=== PATIENT | female | born 1935 | race Caucasian/White ===

== ENCOUNTER 2018-05-16 18:28 | Inpatient (IN) | payer MEDICARE, OTHER ==
[~2018-05-16] VITALS: Ht 152.4 cm; Wt 74.4 kg
[2018-05-16] MEDS ORDERED: IPRATROPIUM (NEB) 0.5 MG/2.5 ML AMP INH STA ×2 (18:33→20:30)
[2018-05-16] MEDS ORDERED: MAGNESIUM SULFATE 2 GM/50 ML 50 ML IVPB STA (18:33)
[2018-05-16] MEDS ORDERED: METHYLPREDNISOLONE 125 MG INJ IV STA (18:33)
[2018-05-16] MEDS ORDERED: ALBUTEROL 0.5% (NEB) 2.5 MG/0.5 ML AMP INH STA ×2 (18:33→20:30)
--- NOTE | 2018-05-16 18:55 | ERD ---
ER Documentation Chief Complaint Chief Complaint SOB worse today than normal, didn't take asthma inhalers, low sats HPI 83-year-old female presents with granddaughter who is interpreting and giving history. Patient has a long-standing history of asthma and shortness of breath almost on a daily basis but refuses to go to primary care physician. Over the last 3 days of shortness of breath has been worse. No fevers or chills or c ough, no pleuritic pain, no chest pressure. Family was concerned about the patient's increased work of breathing and called 911. ROS All systems reviewed and are negative except as per history of present illness. Allergies Allergies: Coded Allergies: No Known Allergy (Unverified , 05/16/18) PMhx/Soc History of Surgery: Yes (umbilical hernia) Anesthesia Reaction: No Hx Respiratory Disorders: Yes (asthma) Hx Cardiac Disorders: Yes (HTN) Hx Alcohol Use: No Hx Substance Use: No Hx Tobacco Use: No Smoking Status: Never smoker FmHx Family History: No diabetes Physical Exam Vitals Vital Signs Date Temp Pulse Resp B/P (MAP) Pulse Ox O2 O2 Flow FiO2 Time Delivery Rate 05/16/18 98.6 109 18 97/75 (82) 100 Mechanical 22:40 Ventilator 05/16/18 99 18 100 70 22:15 05/16/18 100 18 84/71 (75) 100 Mechanical 21:27 Ventilator 05/16/18 101 71/54 (60) 99 Mechanical 21:00 Ventilator 05/16/18 84 Non 20:25 Rebreather 05/16/18 122 18 100 100 20:20 05/16/18 106 20 100 Nasal 5.0 19:21 Cannula 05/16/18 103 33 149/88 100 Nasal 19:15 (108) Cannula 05/16/18 Nasal 4.0 18:45 Cannula 05/16/18 Nasal 4 18:40 Cannula 05/16/18 98.5 118 38 193/115 89 18:35 (141) Physical Exam General: Well developed, well nourished, slight increased work of breathing Head: Normocephalic, atraumatic. Eyes: Pupils equally reactive, EOM intact ENT: Moist mucous membranes Neck: Supple, no lymphadenopathy Respiratory: Scant wheezing, decreased aeration, slight increased work of breathing Cardiovascular: RRR, no murmurs, rubs, or gallops Abdominal: Soft, non-tender, non-distended, no peritoneal signs : Deferred MSK: Bilateral nonpitting edema, no unilateral swelling, 5/5 strength Neurologic: Alert and oriented, moving all extremities, normal speech, no focal weakness, no cerebellar signs Skin: No rash Psych: Normal mood Result Diagram: 05/16/18191005/16/181910 Results 24 hrs Laboratory Tests Test 05/16/18 19:11 05/16/18 20:30 05/16/18 20:40 05/16/18 22:45 White Blood 7.1 10^3/ul Count Red Blood Count 5.46 10^6/ul Hemoglobin 13.8 g/dl Hematocrit 45.3 % Mean Corpuscular 83.0 fl Volume Mean Corpuscular 25.3 pg Hemoglobin Mean Corpuscular 30.5 g/dl Hemoglobin Brenda nt Red Cell 15.5 % Distribution Width Platelet Count 295 10^3/UL Mean Platelet 9.4 fl Volume Immature 0.300 % Granulocytes % Neutrophils % 65.3 % Lymphocytes % 24.3 % Monocytes % 7.5 % Eosinophils % 2.3 % Basophils % 0.3 % Nucleated Red 0.0 /100WBC Blood Cells % Immature 0.020 10^3/ul Granulocytes # Neutrophils # 4.7 10^3/ul Lymphocytes # 1.7 10^3/ul Monocytes # 0.5 10^3/ul Eosinophils # 0.2 10^3/ul Basophils # 0.0 10^3/ul Nucleated Red 0.0 10^3/ul Blood Cells # Sodium Level 144 mmol/L Potassium Level 4.4 mmol/L Chloride Level 102 mmol/L Carbon Dioxide 30 mmol/L Level Anion Gap 12 Blood Urea 14 mg/dl Nitrogen Creatinine 0.74 mg/dl Est Glomerular mL/min Filtrat Rate mL/min Glucose Level 135 mg/dl Calcium Level 9.6 mg/dl Troponin I < 0.012 ng/ml B-Type 205 PG/ML Natriuretic Peptide Blood Gas Blood arterial Specimen Source Arterial Blood 05/16/2018 10:03: Date Drawn 49 PM Arterial Blood 7.384 pH (Temp corrected) Arterial Blood 29.6 mmhg pCO2 (Temp correct) Arterial Blood 388.9 mmHG pO2 (Temp corrected) Arterial Blood 17.3 mmol/L HCO3 Arterial Blood -6.4 mmol/L Base Excess Arterial Blood 99.6 mmHG Oxygen Saturatio n Jason Test N/A Arterial Blood Right Brachial Gas Puncture Site Arterial 0.2 % Blood Carboxyhem oglobin Arterial Blood 0.2 % Methemoglobin Blood Gas A-a O2 294.5 mmHg Differential Oxyhemoglobin 99.2 % Percent Blood Gas 37.0 C Temperature Blood Gas 18.0 Respiration Rate Blood Gas Actual 18 Respiration Rate Blood Gas VENT - AC Modality FiO2 100.0 % Blood Gas Tidal 500.0 mL Volume Blood Gas Low 5.0 cmH2O PEEP Setting Blood Gas 38.0 Inspiratory Pressure Blood Gas KM Notified Whom Blood Gas 05/16/2018 10:14: Notified Time 31 PM POC Venous 6.4 mmol/L 2.7 mmol/L Lactate Current Medications Medications Dose Sig/Jeancarlos Start Time Status Last (Trade) Ordered Route PRN Stop Time Admin Dose Reason Admin Albuterol 5 mg ONCE STAT 05/16/18 DC 05/16/18 (Proventil INH 18:33 19:00 0.5% (Neb)) 05/16/18 18:34 Ipratropium 1 mg ONCE STAT 05/16/18 DC 05/16/18 [place] INH 18:33 19:00 (Atrovent 05/16/18 18:34 0.02% (Neb)) 125 mg ONCE STAT 05/16/18 DC 05/16/18 Methylprednis IV 18:33 19:19 olone Sodium 05/16/18 18:34 Succinate (Solu-Medrol) Magnesium 50 ml @ 25 ONCE STAT 05/16/18 DC 05/16/18 Sulfate mls/hr IVPB 18:33 19:20 05/16/18 20:32 Propofol 100 ml @ ud STK-MED 05/16/18 DC ONCE .ROUTE 20:18 05/16/18 20:19 Cefepime HCl 50 ml @ ONCE STAT 05/16/18 DC 05/16/18 100 mls/hr IVPB 20:30 20:52 05/16/18 20:59 Vancomycin 250 ml @ ONCE ONCE 05/16/18 DC 05/16/18 HCl 125 mls/hr IVPB 20:30 21:18 05/16/18 22:29 120 mg ONCE STAT 05/16/18 DC 05/16/18 Succinylcholi IV 20:30 20:26 ne Chloride 05/16/18 20:34 (Anectine Syringe) Etomidate 20 mg ONCE STAT 05/16/18 DC 05/16/18 (Amidate) IV 20:30 20:26 05/16/18 20:34 Propofol 100 ml @ ONCE STAT 05/16/18 05/16/18 2.19 mls/hr IV 20:30 20:52 05/18/18 18:09 Albuterol 15 mg ONCE STAT 05/16/18 DC 05/16/18 (Proventil INH 20:30 21:01 0.5% (Neb)) 05/16/18 20:34 Ipratropium 2 mg ONCE STAT 05/16/18 DC 05/16/18 [place] INH 20:30 21:01 (Atrovent 05/16/18 20:34 0.02% (Neb)) Fentanyl 25 mcg Q2H PRN 05/16/18 05/16/18 (Sublimaze) IV AGITATION 20:30 20:46 Sodium 1,000 ml @ Q1H STAT 05/16/18 DC 05/16/18 Chloride 1,000 mls/hr IV 21:00 21:19 05/16/18 21:59 Midazolam 50 ml @ 3 ONCE STAT 05/16/18 05/16/18 HCl mls/hr IV 21:00 21:47 05/17/18 13:39 Fentanyl 100 ml @ TITRATE 05/16/18 05/16/18 2.5 mls/hr ONCE IV 21:00 22:01 05/18/18 12:59 Sodium 1,190 ml BOLUS OVER 2 05/16/18 DC 05/16/18 Chloride HOURS STAT 21:14 21:27 (NS) IV* 05/16/18 21:15 Ondansetron 4 mg Q6H PRN 05/16/18 HCl (Zofran IV NAUSEA 22:30 Inj) AND/OR VOMITING Albuterol 4 puff Q2H RESP 05/16/18 (Ventolin THERAPY PRN 22:30 Hfa) INH SHORTNESS OF BREATH Ipratropium 4 puff Q2H RESP 05/16/18 [place] THERAPY PRN 22:30 (Atrovent INH Hfa) SHORTNESS OF BREATH 650 mg Q6H PRN 05/16/18 Acetaminophen PO PAIN 22:30 (Tylenol LEVEL 1-3 OR Liquid) FEVER Famotidine 20 mg Q12 IV 05/17/18 (Pepcid Iv) 09:00 Heparin 5,000 unit Q12 SC 05/17/18 Sodium 09:00 (Porcine) (Heparin (5000 Units/1ml)) Propofol 100 ml @ PER 05/16/18 2.19 mls/hr PROTOCOL IV 22:30 250 ml @ PER 05/16/18 Norepinephrin 1.875 mls/ PROTOCOL IV 22:30 e hr Procedures/MDM EKG, MONITORS, & DIAGNOSTIC IMAGING: EKG: I reviewed and interpreted a 12-lead EKG. Rhythm: Normal sinus rhythm ST Changes: No contiguous ST segment elevations T waves: No contiguous T wave inversions Impression: No evidence of acute cardiac ischemia CXR IMPRESSION: Mild cardiomegaly. Calcified aorta consistent with atherosclerotic disease. Increased interstitial changes throughout the lungs with low lung volumes. Slightly more focal right upper lobe infiltrate. repeat cxr IMPRESSION: Endotracheal tube in good position. Scattered interstitial lung changes with peribronchial cuffing which could represent an atypical or viral process versus fluid overload. There is likely a moderate sized hiatal hernia present. RPTAT:HAGL PROCEDURE: Intubation Note: Indication: Airway protection Consent: This was an emergent situation, implied consent was observed RSI Medications: Etomidate 20 mg, succinylcholine 120 mg Tube size: 7.0 Secured at: 21 at the lip Procedure: Endotracheal intubation was performed. The patient was preoxygenated with supplemental oxygen, the room was set up with emergency airway equipment including [id number], suction, and adjunct airways. Direct visualization of the cords was performed with direct laryngoscopy using video laryngoscope, insertion of the endotracheal tube through the cords was visualized. Bilateral breath sounds were auscultated, color change was observed. The tube was then secured in a postintubation chest x-ray was ordered. The patient tolerated the procedure well there were no complications. LAB INTERPRETATION: I reviewed the laboratory testing and it shows CBC with a hemoglobin of 13.8, normal white count without left shift, negative troponin and BNP, elevated lactic acid of 6.4 trending down to 2.7 MEDICAL DECISION MAKING: The patient's presentation is likely consistent with asthma exacerbation of unclear etiology. The patient appears to have chronic shortness of breath. Consider possible CHF but no obvious signs of this. The patient has chronic nonpitting edema to the lower extremities. The patient is adamant about not wanting to be in the hospital. The patient has decision-making capabilities. We will evaluate the patient for alternative etiologies such as pneumonia, CHF or acute coronary syndrome the lower concern for this process. Patient will benefit from breathing treatment and steroids. ER COURSE: * The patient was initially treated with breathing treatments, magnesium and steroids * During the patient's ER course the patient did have interval improvement however the patient then had a rapid decline. The patient's increased work of breathing got slightly worse but on repeat examination her lung sounds were improving. This is likely response to breathing treatment. Patient still had an increased work of breathing but was comfortable and conversive * Shortly after this evaluation the patient had decompensation with altered mental status, cyanosis and hypoxia. Decision was made to intubate the patient given acute respiratory failure secondary hypoxia. My thought is the patient's asthma exacerbation was persistent the patient was exhausted given duration of symptoms leading to status asthmaticus and acute hypoxemic respiratory failure. * The patient was intubated as documented above * Her blood pressure was elevated as well, consideration for flash pulmonary edema would be possible however the patient's troponin and BNP are normal. Initial chest x-ray was not consistent with pulmonary edema and repeat chest x-ray with only mild interstitial process. This seems like a less likely process. My initial concern was that aggressive fluid resuscitation could potentially lead to volume overload however now that she is intubated fluid resuscitation was initiated. The patient's lactic acid came back elevated but likely secondary to increased work of breathing rather than hypoperfusion and infectious process. * The patient does have Sirs criteria no focal source of infection is noted. This is likely consistent with a viral process and asthma exacerbation. Patient's lactic acid improved. 30 cc/kg bolus of saline was provided, blood cultures taken and empiric antibiotics provided but again very low concern for sepsis in the setting. All signs are pointing more to a respiratory process consistent with asthma. * The patient's blood pressure did dip but was improved with fluid bolus resuscitation and mean arterial pressure remains greater than 65. No indication at this time for central line. Continue to monitor and the patient seems to be fluid responsive and likely dehydrated. Lactic acid response is also reassuring and supportive of no central line at this time. * The family was updated and informed during the patient's ER course CONSULTATION: None DISPOSITION PLAN: Accepting care team and consultations: I discussed the current laboratory data, diagnostic imaging and emergency care provided. Admitting team: Dr. Umana Admitting team indication: Insurance directed It should be noted that I do not believe the patient has criteria for sepsis diagnosis in the emergency room setting. The patient was treated with fluid resuscitation and empiric antibiotics to cover for potential sepsis but the patient does not have a focal source of infection currently. Departure Diagnosis: Primary Impression: Acute hypoxemic respiratory failure Additional Impressions: Status asthmaticus Asthma severity: unspecified severity Asthma persistence: unspecified Qualified Codes: J45.902 - Unspecified asthma with status asthmaticus Dehydration Lactic acidosis Condition: Critical CECE VICTOR MD May 16, 2018 18:55
[2018-05-16] MEDS ORDERED: PROPOFOL 100 ML ONE (20:18)
[2018-05-16] MEDS ORDERED: VANCOMYCIN 1 GM (PMX) 250 ML IVPB ONE (20:30)
[2018-05-16] MEDS ORDERED: ETOMIDATE 20 MG INJ IV STA (20:30)
[2018-05-16] MEDS ORDERED: CEFEPIME 2GM/50 ML (PMX) 50 ML IVPB STA (20:30)
[2018-05-16] MEDS ORDERED: PROPOFOL 100 ML IV STA (20:30)
[2018-05-16] MEDS ORDERED: FENTAnyl 50 MCG/ML VIAL IV PRN (20:30)
[2018-05-16] MEDS ORDERED: SUCCINYLCHOLINE CHLORIDE 100 MG/5 ML SYG IV STA (20:30)
[2018-05-16] MEDS ORDERED: SOD CHLORIDE 0.9% 1,000 ML IV STA (21:00)
[2018-05-16] MEDS ORDERED: FENTAnyl (DRIP) 1000 mcg/100mL 100 ML IV ONE (21:00)
[2018-05-16] MEDS ORDERED: MIDAZOLAM (DRIP) 50 mg/50 mL 50 ML IV STA (21:00)
[2018-05-16] MEDS ORDERED: SODIUM CHLORIDE 0.9% 1L BAG IV* STA (21:14)
[2018-05-16] MEDS ORDERED: IPRATROPIUM (HFA) 12.9 GM INHALER INH PRN (22:30)
[2018-05-16] MEDS ORDERED: ONDANSETRON 4 MG INJ IV PRN (22:30)
[2018-05-16] MEDS ORDERED: NORepinephrine 8MG/250 ML (PMX 250 ML IV SCH (22:30)
[2018-05-16] MEDS ORDERED: ACETAMINOPHEN 650MG/20.3ML CUP PO PRN (22:30)
[2018-05-16] MEDS ORDERED: ALBUTEROL HFA 8 GM INHALER INH PRN (22:30)
--- NOTE | 2018-05-16 23:43 | HP ---
Date/Time of Note Date/Time of Note DATE: 05/16/18 TIME: 23:43 Assessment/Plan VTE Prophylaxis Pharmacological prophylaxis: heparin Lines/Catheters IV Catheter Type (from Nrs): Saline Lock Assessment/Plan Assessment/Plan 1. Hypoxic respiratory failure: Secondary to asthma exacerbation: s/p intubation -Continue vent support. Pulmonary to manage -Bronchodilators and steroid -Antibiotic for likely pneumonia 2. Shock, secondary to effect of paralytics/sedatives for intubation VS septic shock from pneumonia -IV fluid -Pressor support as needed -Follow-up culture results -Trend lactate 3. Lactic acidosis: Likely secondary to above -See #2 Result Diagram: 05/16/18191005/16/181910 Results 24hrs Laboratory Tests Test 05/16/18 19:11 05/16/18 20:30 05/16/18 20:40 05/16/18 22:45 White Blood Count 7.1 Red Blood Count 5.46 H Hemoglobin 13.8 Hematocrit 45.3 Mean Corpuscular 83.0 Volume Mean Corpuscular 25.3 L Hemoglobin Mean Corpuscular 30.5 L Hemoglobin Concen t Red Cell 15.5 H Distribution Width Platelet Count 295 Mean Platelet 9.4 Volume Immature 0.300 Granulocytes % Neutrophils % 65.3 Lymphocytes % 24.3 Monocytes % 7.5 Eosinophils % 2.3 Basophils % 0.3 Nucleated Red 0.0 Blood Cells % Immature 0.020 Granulocytes # Neutrophils # 4.7 Lymphocytes # 1.7 Monocytes # 0.5 Eosinophils # 0.2 Basophils # 0.0 Nucleated Red 0.0 Blood Cells # Sodium Level 144 Potassium Level 4.4 Chloride Level 102 Carbon Dioxide 30 Level Anion Gap 12 Blood Urea 14 Nitrogen Creatinine 0.74 Est Glomerular Filtrat Rate mL/min Glucose Level 135 Calcium Level 9.6 Troponin I < 0.012 B-Type 205 Natriuretic Peptide Blood Gas Blood arterial Specimen Source Arterial Blood 05/16/2018 10:03: Date Drawn 49 PM Arterial Blood pH 7.384 (Temp corrected) Arterial Blood 29.6 L pCO2 (Temp correct) Arterial Blood 388.9 H pO2 (Temp corrected) Arterial Blood 17.3 L HCO3 Arterial Blood -6.4 L Base Excess Arterial Blood 99.6 Oxygen Saturation Jason Test N/A Arterial Blood Right Brachial Gas Puncture Site Arterial 0.2 Blood Carboxyhemo globin Arterial Blood 0.2 Methemoglobin Blood Gas A-a O2 294.5 H Differential Oxyhemoglobin 99.2 H Percent Blood Gas 37.0 Temperature Blood Gas 18.0 Respiration Rate Blood Gas Actual 18 Respiration Rate Blood Gas VENT - AC Modality FiO2 100.0 Blood Gas Tidal 500.0 Volume Blood Gas Low 5.0 PEEP Setting Blood Gas 38.0 Inspiratory Pressure Blood Gas KM Notified Whom Blood Gas 05/16/2018 10:14: Notified Time 31 PM POC Venous 6.4 *H 2.7 *H Lactate HPI/ROS Admit Date/Time Admit Date/Time Hx of Present Illness This is an 83-year-old female with a history of asthma who presented to ER complaining of shortness of breath and wheezing. Symptoms been going on for about 2 days. She also reported generalized weakness. When EMS arrived, her oxygen saturation was 92%. She received breathing treatments with improvement of oxygen saturation to 98%. Wheezing and shortness of breath is also improved. Patient denied chest pain, fever/chills. When arrived to the ER, he was hypoxic with oxygen saturation of 89%, respiratory rate 38, heart rate 118, blood pressure 193/15. ABG on 100% FiO2 shows pH of almost 7.4, PCO2 30, PO2 388, bicarb 17. Due to worsening of symptom, patient was intubated in the ER. She also became progressively more short of breath after intubation, with the lowest documented BP of 71/54. Lactate significantly elevated. Chest x-ray shows the following: Mild cardiomegaly. Calcified aorta consistent with atherosclerotic disease. Increased interstitial changes throughout the lungs with low lung volumes. Slightly more focal right upper lobe infiltrate. . PMH/Family/Social Past Medical History Past Surgical History Past Surgical Hx: other (see hpi) Family History Significant Family History: no pertinent family hx Social History Alcohol Use: other Smoking Status: Unknown if ever smoked Drug Use: other Exam Constitutional: other (no acute distress) Eyes: PERRL ENMT: nl external ears & nose Neck: supple Respiratory: normal air movement Cardiovascular: nl pulses Gastrointestinal: soft Extremities: normal pulses Medications Current Medications Propofol 100 ml @ 2.19 mls/hr ONCE STAT IV Last administered on 05/16/18at 20:52; Admin Dose 2.19 MLS/HR; Start 05/16/18 at 20:30; Stop 05/18/18 at 18:09 Fentanyl (Sublimaze) 25 mcg Q2H PRN IV AGITATION Last administered on 05/16/18at 20:46; Admin Dose 25 MCG; Start 05/16/18 at 20:30 Midazolam HCl 50 ml @ 3 mls/hr ONCE STAT IV Last administered on 05/16/18at 21:47; Admin Dose 3 MLS/HR; Start 05/16/18 at 21:00; Stop 05/17/18 at 13:39 Fentanyl 100 ml @ 2.5 mls/hr TITRATE ONCE IV Last administered on 05/16/18at 22:01; Admin Dose 2.5 MLS/HR; Start 05/16/18 at 21:00; Stop 05/18/18 at 12:59 Ondansetron HCl (Zofran Inj) 4 mg Q6H PRN IV NAUSEA AND/OR VOMITING; Start 05/16/18 at 22:30 Albuterol (Ventolin Hfa) 4 puff Q2H RESP THERAPY PRN INH SHORTNESS OF BREATH; Start 05/16/18 at 22:30 Ipratropium [place] (Atrovent Hfa) 4 puff Q2H RESP THERAPY PRN INH SHORTNESS OF BREATH; Start 05/16/18 at 22:30 Acetaminophen (Tylenol Liquid) 650 mg Q6H PRN PO PAIN LEVEL 1-3 OR FEVER; Start 05/16/18 at 22:30 Famotidine (Pepcid Iv) 20 mg Q12 IV ; Start 05/17/18 at 09:00 Heparin Sodium (Porcine) (Heparin (5000 Units/1ml)) 5,000 unit Q12 SC ; Start 05/17/18 at 09:00 Propofol 100 ml @ 2.19 mls/hr PER PROTOCOL IV ; Start 05/16/18 at 22:30 Norepinephrine 250 ml @ 1.875 mls/ hr PER PROTOCOL IV ; Start 05/16/18 at 22:30 Coded Allergies: No Known Allergy (Unverified , 05/20/18) Social History Smoking Status: Never smoker Exam/Review of Systems Vital Signs Vitals Vital Signs Date Temp Pulse Resp B/P (MAP) Pulse Ox O2 O2 Flow FiO2 Time Delivery Rate 05/16/18 98.6 109 18 97/75 (82) 100 Mechanical 22:40 Ventilator 05/16/18 70 22:15 05/16/18 5.0 19:21 ELIEZER MORRIS MD May 16, 2018 23:43
[2018-05-17] VITALS (41 sets, daily range): BP systolic 84–137; BP diastolic 51–80; PULSE 75–101; RESP 12–30; Ht 152.4 cm; Wt 74.4 kg
[2018-05-17] MEDS ORDERED: NORepinephrine 8MG/250 ML (PMX 250 ML IV SCH (01:30)
[2018-05-17] MEDS ORDERED: SOD CHLORIDE 0.9% 250 ML IV ONE (02:30)
[2018-05-17] MEDS ORDERED: SOD CHLORIDE 0.9% 1,000 ML IV SCH (06:00)
[2018-05-17] MEDS: CEFTRIAXONE 1 GM/50 ML (PMX) 50 ML IVPB SCH ×2 (06:17→17:40)
[2018-05-17] MEDS ORDERED: MIDAZOLAM (DRIP) 50 mg/50 mL 50 ML IV SCH (07:00)
[2018-05-17] MEDS: AZITHROMYCIN 500MG/NS (PMX) 250 ML IVPB SCH (07:47)
[2018-05-17] MEDS ORDERED: FENTAnyl (DRIP) 1000 mcg/100mL 100 ML IV SCH (08:00)
[2018-05-17] MEDS: FAMOTIDINE 20 MG INJ IV SCH ×2 (08:28→20:37)
[2018-05-17] MEDS: HEPARIN 5,000 UNIT/1 ML VIAL SC SCH ×2 (08:29→20:38)
--- NOTE | 2018-05-17 09:59 | CONS ---
Assessment/Plan Assessment/Plan Assessment/Plan (Daily) Chest x-ray showing patchy bilateral infiltrates possibly with a background of interstitial changes. Ventilator setting; AC of 18, tidal volume 500, PEEP of 5, 40% FiO2. Patient is off Versed and fentanyl drips. Assessment and recommendations; 1. Patient admitted with shortness of breath which occurred after having dinner last night. According to the patient's son, patient was having intermittent shortness of breath the last 2 or 3 days without any fever, with rare wheezing. There is a questionable history of asthma. Patient however does use albuterol on a as needed basis at home. But has never been diagnosed with asthma per se. Etiology of respiratory failure possibly could be acute bronchospasm or laryngospasm. 2. Patchy bilateral pneumonia. Possibly interstitial lung disease. 3. Patient is currently hemodynamically stable. 4. No other comorbid conditions. Continue current supportive care. Patient currently is too sedated to undergo CPAP trial. Has been taken off sedation about 45 minutes ago. We will continue to hold sedation and reassess in about 2 hours on CPAP mode to see if the patient can be extubated. Meanwhile I would give 1 dose of Solu-Medrol 125 mg x1. I did have a detailed discussion with the patient's son at bedside answered all his questions. Prognosis is good. 40 minutes of critical care time was spent evaluating the patient. Consultation Date/Type/Reason Admit Date/Time Date of Consultation: May 17, 2018 Type of Consult Pulmonary/critical care Pulmonary consult requested for evaluation of respiratory failure. Patient is an 89-year-old lady who was brought into the emergency room with a 2- day history of shortness of breath with coughing and wheezing. Patient was in respiratory failure and had to be intubated. By the time I saw her in ICU, patient has been taken off sedation and is orally intubated and fairly responsive. History was obtained from patient's family as well as medical records. Past medical history; 1. History of asthma. Medications; reviewed. Allergies; none. Social history; no show any smoking, alcohol or drug abuse. Family history; noncontributory. Patient does have a supportive family. 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 Review of system; unable to be obtained, patient is orally intubated. General exam; elderly female, orally intubated, awake and responsive. Currently in no distress. Date/Time of Note DATE: 05/17/18 TIME: 09:50 Past Medical History Medications Current Medications Fentanyl (Sublimaze) 25 mcg Q2H PRN IV AGITATION Last administered on 05/16/18at 20:46; Admin Dose 25 MCG; Start 05/16/18 at 20:30 Ondansetron HCl (Zofran Inj) 4 mg Q6H PRN IV NAUSEA AND/OR VOMITING; Start 05/16/18 at 22:30 Albuterol (Ventolin Hfa) 4 puff Q2H RESP THERAPY PRN INH SHORTNESS OF BREATH; Start 05/16/18 at 22:30 Ipratropium [place] (Atrovent Hfa) 4 puff Q2H RESP THERAPY PRN INH SHORTNESS OF BREATH; Start 05/16/18 at 22:30 Acetaminophen (Tylenol Liquid) 650 mg Q6H PRN PO PAIN LEVEL 1-3 OR FEVER; Start 05/16/18 at 22:30 Famotidine (Pepcid Iv) 20 mg Q12 IV Last administered on 05/17/18at 08:28; Admin Dose 20 MG; Start 05/17/18 at 09:00 Heparin Sodium (Porcine) (Heparin (5000 Units/1ml)) 5,000 unit Q12 SC Last administered on 05/17/18 08:29; Admin Dose 5,000 UNIT; Start 05/17/18 at 09:00 Propofol 100 ml @ 2.19 mls/hr PER PROTOCOL IV ; Start 05/16/18 at 22:30 Norepinephrine 250 ml @ 1.875 mls/ hr PER PROTOCOL IV ; Start 05/17/18 at 01:30 Azithromycin 250 ml @ 250 mls/hr Q24H IVPB Last administered on 05/17/18at 07:47; Admin Dose 250 MLS/HR; Start 05/17/18 at 07:00 Ceftriaxone Sodium 50 ml @ 100 mls/hr Q12H IVPB Last administered on 05/17/18 06:17; Admin Dose 100 MLS/HR; Start 05/17/18 at 06:00 Sodium Chloride 1,000 ml @ 100 mls/hr Q10H IV Last administered on 05/17/18 06:17; Admin Dose 100 MLS/HR; Start 05/17/18 at 06:00 Midazolam HCl 50 ml @ 1 mls/hr TITRATE IV Last administered on 3/13/19at 07:22; Admin Dose 5 MLS/HR; Start 05/17/18 at 07:00 Fentanyl 100 ml @ 2.5 mls/hr TITRATE IV ; Start 05/17/18 at 07:00 Allergies: Coded Allergies: No Known Allergy (Unverified , 05/16/18) Social History Smoking Status: Unknown if ever smoked Exam/Review of Systems Exam Vitals Vital Signs Date Temp Pulse Resp B/P (MAP) Pulse Ox O2 O2 Flow FiO2 Time Delivery Rate 05/17/18 83 18 100 40 08:43 05/17/18 98/64 (75) 05:30 05/17/18 Mechanical 05:00 Ventilator 05/17/18 97.8 04:30 05/16/18 5.0 19:21 Intake and Output 05/16/18 05/16/18 05/17/18 1515:00 23:00 07:00 IntakeIntake Total 162.5 ml BalanceBalance 162.5 ml Exam HEENT exam; supple neck, no JVD. No lymphadenopathy. Midline trachea. No thyromegaly. Orally intubated. Patient is edentulous. Chest exam; diminished breath sounds bilaterally. No added sounds. S1-S2 audible, no murmurs. Regular rhythm. Abdomen exam; soft, nontender. No organomegaly. Nondistended. Bowel sounds audible. Extremity exam; no peripheral edema clubbing. SOC[employer] WORK PROFESS[employer] exam; no focal deficit. Results Result Diagram: 05/17/18 0753 05/17/18 0753 Results 24hrs Laboratory Tests Test 05/16/18 19:11 05/16/18 20:30 05/16/18 20:40 05/16/18 22:45 White Blood Count 7.1 Red Blood Count 5.46 H Hemoglobin 13.8 Hematocrit 45.3 Mean Corpuscular 83.0 Volume Mean Corpuscular 25.3 L Hemoglobin Mean Corpuscular 30.5 L Hemoglobin Concen t Red Cell 15.5 H Distribution Width Platelet Count 295 Mean Platelet 9.4 Volume Immature 0.300 Granulocytes % Neutrophils % 65.3 Lymphocytes % 24.3 Monocytes % 7.5 Eosinophils % 2.3 Basophils % 0.3 Nucleated Red 0.0 Blood Cells % Immature 0.020 Granulocytes # Neutrophils # 4.7 Lymphocytes # 1.7 Monocytes # 0.5 Eosinophils # 0.2 Basophils # 0.0 Nucleated Red 0.0 Blood Cells # Sodium Level 144 Potassium Level 4.4 Chloride Level 102 Carbon Dioxide 30 Level Anion Gap 12 Blood Urea 14 Nitrogen Creatinine 0.74 Est Glomerular Filtrat Rate mL/min Glucose Level 135 Calcium Level 9.6 Troponin I < 0.012 B-Type 205 Natriuretic Peptide Blood Gas Blood arterial Specimen Source Arterial Blood 05/16/2018 10:03: Date Drawn 49 PM Arterial Blood pH 7.384 (Temp corrected) Arterial Blood 29.6 L pCO2 (Temp correct) Arterial Blood 388.9 H pO2 (Temp corrected) Arterial Blood 17.3 L HCO3 Arterial Blood -6.4 L Base Excess Arterial Blood 99.6 Oxygen Saturation Jason Test N/A Arterial Blood Right Brachial Gas Puncture Site Arterial 0.2 Blood Carboxyhemo globin Arterial Blood 0.2 Methemoglobin Blood Gas A-a O2 294.5 H Differential Oxyhemoglobin 99.2 H Percent Blood Gas 37.0 Temperature Blood Gas 18.0 Respiration Rate Blood Gas Actual 18 Respiration Rate Blood Gas VENT - AC Modality FiO2 100.0 Blood Gas Tidal 500.0 Volume Blood Gas Low 5.0 PEEP Setting Blood Gas 38.0 Inspiratory Pressure Blood Gas Notified Whom Blood Gas 05/16/2018 10:14: Notified Time 31 PM POC Venous 6.4 *H 2.7 *H Lactate Test 05/17/18 01:40 05/17/18 07:53 Lactic Acid Level 8.5 *H 7.9 *H White Blood Count 9.9 # Red Blood Count 4.96 Hemoglobin 12.5 Hematocrit 40.9 Mean Corpuscular 82.5 Volume Mean Corpuscular 25.2 L Hemoglobin Mean Corpuscular 30.6 L Hemoglobin Concen t Red Cell 15.8 H Distribution Width Platelet Count 243 Mean Platelet 10.5 H Volume Immature 0.600 H Granulocytes % Neutrophils % 87.9 H Lymphocytes % 8.0 L Monocytes % 3.4 Eosinophils % 0.0 Basophils % 0.1 Nucleated Red 0.0 Blood Cells % Immature 0.060 H Granulocytes # Neutrophils # 8.7 H Lymphocytes # 0.8 Monocytes # 0.3 Eosinophils # 0.0 Basophils # 0.0 Nucleated Red 0.0 Blood Cells # Sodium Level 144 Potassium Level 4.6 Chloride Level 110 Carbon Dioxide 18 #L Level Anion Gap 16 H Blood Urea 18 Nitrogen Creatinine 0.72 Est Glomerular Filtrat Rate mL/min Glucose Level 189 Calcium Level 8.6 Total Bilirubin 0.3 Direct Bilirubin 0.00 Indirect 0.3 Bilirubin Aspartate Amino 31 Transf (AST/SGOT) Alanine 11 L Aminotransferase (ALT/SGPT) Alkaline 80 Phosphatase Total Protein 6.5 Albumin 3.4 Globulin 3.10 Albumin/Globulin 1.09 Ratio Medications Medication Current Medications Fentanyl (Sublimaze) 25 mcg Q2H PRN IV AGITATION Last administered on 05/16/18at 20:46; Admin Dose 25 MCG; Start 05/16/18 at 20:30 Ondansetron HCl (Zofran Inj) 4 mg Q6H PRN IV NAUSEA AND/OR VOMITING; Start 05/16/18 at 22:30 Albuterol (Ventolin Hfa) 4 puff Q2H RESP THERAPY PRN INH SHORTNESS OF BREATH; Start 05/16/18 at 22:30 Ipratropium [place] (Atrovent Hfa) 4 puff Q2H RESP THERAPY PRN INH SHORTNESS OF BREATH; Start 05/16/18 at 22:30 Acetaminophen (Tylenol Liquid) 650 mg Q6H PRN PO PAIN LEVEL 1-3 OR FEVER; Start 05/16/18 at 22:30 Famotidine (Pepcid Iv) 20 mg Q12 IV Last administered on 05/17/18at 08:28; Admin Dose 20 MG; Start 05/17/18 at 09:00 Heparin Sodium (Porcine) (Heparin (5000 Units/1ml)) 5,000 unit Q12 SC Last administered on 05/17/18at 08:29; Admin Dose 5,000 UNIT; Start 05/17/18 at 09:00 Propofol 100 ml @ 2.19 mls/hr PER PROTOCOL IV ; Start 05/16/18 at 22:30 Norepinephrine 250 ml @ 1.875 mls/ hr PER PROTOCOL IV ; Start 05/17/18 at 01:30 Azithromycin 250 ml @ 250 mls/hr Q24H IVPB Last administered on 05/17/18at 07:47; Admin Dose 250 MLS/HR; Start 05/17/18 at 07:00 Ceftriaxone Sodium 50 ml @ 100 mls/hr Q12H IVPB Last administered on 05/17/18at 06:17; Admin Dose 100 MLS/HR; Start 05/17/18 at 06:00 Sodium Chloride 1,000 ml @ 100 mls/hr Q10H IV Last administered on 05/17/18at 06:17; Admin Dose 100 MLS/HR; Start 05/17/18 at 06:00 Midazolam HCl 50 ml @ 1 mls/hr TITRATE IV Last administered on 05/17/18at 07:22; Admin Dose 5 MLS/HR; Start 05/17/18 at 07:00 Fentanyl 100 ml @ 2.5 mls/hr TITRATE IV ; Start 05/17/18 at 07:00 MONICA STORY 13, 2019 09:59
[2018-05-17] MEDS ORDERED: METHYLPREDNISOLONE 125 MG INJ IV ONE (10:00)
[2018-05-17] MEDS ORDERED: ALBUTEROL/IPRATROPIUM (NEB) 3 ML AMP HHN SCH (10:00)
--- NOTE | 2018-05-17 10:01 | CONS ---
Assessment/Plan Assessment/Plan Assessment/Plan (Daily) Respiratory failure Required intubation Shock elevated lactic acid level Elevated lactic acidosis Mild to moderate obesity Conditioning Complete database Long discussion with patient's son and [id number]. [id number] does primarily the speaking and ask questions on behalf of the patient. 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 Given details about her current medical history the fact she is doing well at this time but that she is intubated and she may require a prolonged stay on the ventilator but at this time it does not seem to be the case. Patient is awake alert being followed by pulmonary medicine will keep family members well informed. I did not approach CODE STATUS Consultation Date/Type/Reason Admit Date/Time Date/Time of Note DATE: 05/17/18 TIME: 09:59 Hx of Present Illness History is taken from patient medical records and her son at the bedside. She is an 83-year-old female who was brought into the emergency room in respiratory distress hypoxic respiratory failure did not respond to echo dilators required intubation and has been transferred to the intensive care unit the patient has a past medical history of asthma and was having complaints of increasing shortness of breath prior to presentation. EMS were called patient's sats were in the 90s percentile 92% breathing improved after supplemental oxygen pressure was 193/15 in the emergency room elevated lactic acid level. Chest x-ray and presentations primarily show scattered interstitial lung changes and peribronchial cuffing with which could represent atypical or viral process medical problems include cardiomyopathy. According to family members she has essentially no severe past medical history of major medical comorbid problems. She is ambulatory she can do all her ADLs she requires assistance with a walker only otherwise cognitively she is intact. Unobtainable patient is intubated Past Medical History Medications Current Medications Fentanyl (Sublimaze) 25 mcg Q2H PRN IV AGITATION Last administered on 05/16/18at 20:46; Admin Dose 25 MCG; Start 05/16/18 at 20:30 Ondansetron HCl (Zofran Inj) 4 mg Q6H PRN IV NAUSEA AND/OR VOMITING; Start 05/16/18 at 22:30 Albuterol (Ventolin Hfa) 4 puff Q2H RESP THERAPY PRN INH SHORTNESS OF BREATH; Start 05/16/18 at 22:30 Ipratropium [place] (Atrovent Hfa) 4 puff Q2H RESP THERAPY PRN INH SHORTNESS OF BREATH; Start 05/16/18 at 22:30 Acetaminophen (Tylenol Liquid) 650 mg Q6H PRN PO PAIN LEVEL 1-3 OR FEVER; Start 05/16/18 at 22:30 Famotidine (Pepcid Iv) 20 mg Q12 IV Last administered on 05/17/18at 08:28; Admin Dose 20 MG; Start 05/17/18 at 09:00 Heparin Sodium (Porcine) (Heparin (5000 Units/1ml)) 5,000 unit Q12 SC Last administered on 05/17/18at 08:29; Admin Dose 5,000 UNIT; Start 05/17/18 at 09:00 Propofol 100 ml @ 2.19 mls/hr PER PROTOCOL IV ; Start 05/16/18 at 22:30 Norepinephrine 250 ml @ 1.875 mls/ hr PER PROTOCOL IV ; Start 05/17/18 at 01:30 Azithromycin 250 ml @ 250 mls/hr Q24H IVPB Last administered on 05/17/18at 07:47; Admin Dose 250 MLS/HR; Start 05/17/18 at 07:00 Ceftriaxone Sodium 50 ml @ 100 mls/hr Q12H IVPB Last administered on 05/17/18at 06:17; Admin Dose 100 MLS/HR; Start 05/17/18 at 06:00 Sodium Chloride 1,000 ml @ 100 mls/hr Q10H IV Last administered on 05/17/18at 06:17; Admin Dose 100 MLS/HR; Start 05/17/18 at 06:00 Midazolam HCl 50 ml @ 1 mls/hr TITRATE IV Last administered on 05/17/18at 07:22; Admin Dose 5 MLS/HR; Start 05/17/18 at 07:00 Fentanyl 100 ml @ 2.5 mls/hr TITRATE IV ; Start 05/17/18 at 07:00 Allergies: Coded Allergies: No Known Allergy (Unverified , 05/16/18) Social History Alcohol Use: none Smoking Status: Never smoker Drug Use: none Exam/Review of Systems Exam Vitals Vital Signs Date Temp Pulse Resp B/P (MAP) Pulse Ox O2 O2 Flow FiO2 Time Delivery Rate 05/17/18 83 18 100 40 08:43 05/17/18 98/64 (75) 05:30 05/17/18 Mechanical 05:00 Ventilator 05/17/18 97.8 04:30 05/16/18 5.0 19:21 Intake and Output 05/16/18 05/16/18 05/17/18 1515:00 23:00 07:00 IntakeIntake Total 162.5 ml BalanceBalance 162.5 ml Constitutional: alert, oriented, well developed Psych: anxiety Head: normocephalic, atraumatic Eyes: nl conjunctiva, EOMI, nl lids, nl sclera, PERRL ENMT: No nl external ears & nose, No nl lips & teeth, No nl nasal mucosa & septum, No mucosa pink and moist, No intubated, No tympanic membranes, No other Neck: supple, non-tender Respiratory: clear to auscultation, normal air movement, other (Without rales rhonchi wheezing rubs, intubated) Cardiovascular: regular rate and rhythm, nl pulses; No bruits, No diastolic murmur, No edema, No gallop, No irregular rhythm, No jugular venous distention (JVD), No murmurs/extra sounds, No rub, No systolic murmur, No S3, No S4, No other Gastrointestinal: soft, nl liver, spleen, non-tender; No ascites, No bowel sounds, No distended, No firm, No hepatomegaly, No mass, No rebound or guarding, No splenomegaly, No surgical scars, No tender, No other Extremities: normal pulses; No calf tenderness, No cyanosis, No clubbing, No edema, No pitting pedal edema, No palpable cord, No tenderness, No other Results Result Diagram: 05/17/18 0753 05/17/18 0753 Results 24hrs Laboratory Tests Test 05/16/18 19:11 05/16/18 20:30 05/16/18 20:40 05/16/18 22:45 White Blood Count 7.1 Red Blood Count 5.46 H Hemoglobin 13.8 Hematocrit 45.3 Mean Corpuscular 83.0 Volume Mean Corpuscular 25.3 L Hemoglobin Mean Corpuscular 30.5 L Hemoglobin Concen t Red Cell 15.5 H Distribution Width Platelet Count 295 Mean Platelet 9.4 Volume Immature 0.300 Granulocytes % Neutrophils % 65.3 Lymphocytes % 24.3 Monocytes % 7.5 Eosinophils % 2.3 Basophils % 0.3 Nucleated Red 0.0 Blood Cells % Immature 0.020 Granulocytes # Neutrophils # 4.7 Lymphocytes # 1.7 Monocytes # 0.5 Eosinophils # 0.2 Basophils # 0.0 Nucleated Red 0.0 Blood Cells # Sodium Level 144 Potassium Level 4.4 Chloride Level 102 Carbon Dioxide 30 Level Anion Gap 12 Blood Urea 14 Nitrogen Creatinine 0.74 Est Glomerular Filtrat Rate mL/min Glucose Level 135 Calcium Level 9.6 Troponin I < 0.012 B-Type 205 Natriuretic Peptide Blood Gas Blood arterial Specimen Source Arterial Blood 05/16/2018 10:03: Date Drawn 49 PM Arterial Blood pH 7.384 (Temp corrected) Arterial Blood 29.6 L pCO2 (Temp correct) Arterial Blood 388.9 H pO2 (Temp corrected) Arterial Blood 17.3 L HCO3 Arterial Blood -6.4 L Base Excess Arterial Blood 99.6 Oxygen Saturation Jason Test N/A Arterial Blood Right Brachial Gas Puncture Site Arterial 0.2 Blood Carboxyhemo globin Arterial Blood 0.2 Methemoglobin Blood Gas A-a O2 294.5 H Differential Oxyhemoglobin 99.2 H Percent Blood Gas 37.0 Temperature Blood Gas 18.0 Respiration Rate Blood Gas Actual 18 Respiration Rate Blood Gas VENT - AC Modality FiO2 100.0 Blood Gas Tidal 500.0 Volume Blood Gas Low 5.0 PEEP Setting Blood Gas 38.0 Inspiratory Pressure Blood Gas KM Notified Whom Blood Gas 05/16/2018 10:14: Notified Time 31 PM POC Venous 6.4 *H 2.7 *H Lactate Test 05/17/18 01:40 05/17/18 07:53 Lactic Acid Level 8.5 *H 7.9 *H White Blood Count 9.9 # Red Blood Count 4.96 Hemoglobin 12.5 Hematocrit 40.9 Mean Corpuscular 82.5 Volume Mean Corpuscular 25.2 L Hemoglobin Mean Corpuscular 30.6 L Hemoglobin Concen t Red Cell 15.8 H Distribution Width Platelet Count 243 Mean Platelet 10.5 H Volume Immature 0.600 H Granulocytes % Neutrophils % 87.9 H Lymphocytes % 8.0 L Monocytes % 3.4 Eosinophils % 0.0 Basophils % 0.1 Nucleated Red 0.0 Blood Cells % Immature 0.060 H Granulocytes # Neutrophils # 8.7 H Lymphocytes # 0.8 Monocytes # 0.3 Eosinophils # 0.0 Basophils # 0.0 Nucleated Red 0.0 Blood Cells # Sodium Level 144 Potassium Level 4.6 Chloride Level 110 Carbon Dioxide 18 #L Level Anion Gap 16 H Blood Urea 18 Nitrogen Creatinine 0.72 Est Glomerular Filtrat Rate mL/min Glucose Level 189 Calcium Level 8.6 Total Bilirubin 0.3 Direct Bilirubin 0.00 Indirect 0.3 Bilirubin Aspartate Amino 31 Transf (AST/SGOT) Alanine 11 L Aminotransferase (ALT/SGPT) Alkaline 80 Phosphatase Total Protein 6.5 Albumin 3.4 Globulin 3.10 Albumin/Globulin 1.09 Ratio Medications Medication Current Medications Fentanyl (Sublimaze) 25 mcg Q2H PRN IV AGITATION Last administered on 05/16/18 20:46; Admin Dose 25 MCG; Start 05/16/18 at 20:30 Ondansetron HCl (Zofran Inj) 4 mg Q6H PRN IV NAUSEA AND/OR VOMITING; Start 05/16/18 at 22:30 Albuterol (Ventolin Hfa) 4 puff Q2H RESP THERAPY PRN INH SHORTNESS OF BREATH; Start 05/16/18 at 22:30 Ipratropium [place] (Atrovent Hfa) 4 puff Q2H RESP THERAPY PRN INH SHORTNESS OF BREATH; Start 05/16/18 at 22:30 Acetaminophen (Tylenol Liquid) 650 mg Q6H PRN PO PAIN LEVEL 1-3 OR FEVER; Start 05/16/18 at 22:30 Famotidine (Pepcid Iv) 20 mg Q12 IV Last administered on 05/17/18 08:28; Admin Dose 20 MG; Start 05/17/18 at 09:00 Heparin Sodium (Porcine) (Heparin (5000 Units/1ml)) 5,000 unit Q12 SC Last administered on 05/17/18 08:29; Admin Dose 5,000 UNIT; Start 05/17/18 at 09:00 Propofol 100 ml @ 2.19 mls/hr PER PROTOCOL IV ; Start 05/16/18 at 22:30 Norepinephrine 250 ml @ 1.875 mls/ hr PER PROTOCOL IV ; Start 05/17/18 at 01:30 Azithromycin 250 ml @ 250 mls/hr Q24H IVPB Last administered on 05/17/18 07:47; Admin Dose 250 MLS/HR; Start 05/17/18 at 07:00 Ceftriaxone Sodium 50 ml @ 100 mls/hr Q12H IVPB Last administered on 3/13/19at 06:17; Admin Dose 100 MLS/HR; Start 05/17/18 at 06:00 Sodium Chloride 1,000 ml @ 100 mls/hr Q10H IV Last administered on 05/17/18at 06:17; Admin Dose 100 MLS/HR; Start 05/17/18 at 06:00 Midazolam HCl 50 ml @ 1 mls/hr TITRATE IV Last administered on 05/17/18at 07:22; Admin Dose 5 MLS/HR; Start 05/17/18 at 07:00 Fentanyl 100 ml @ 2.5 mls/hr TITRATE IV ; Start 05/17/18 at 07:00 MATTHEW BUSTILLO May 17, 2018 10:01
[2018-05-17] MEDS: FENTAnyl (DRIP) 1000 mcg/100mL 100 ML IV SCH ×2 (11:41→17:46)
[2018-05-17] MEDS: PROPOFOL 100 ML IV SCH ×2 (11:41→20:37)
[2018-05-17] MEDS ORDERED: FUROSEMIDE 20 MG INJ IV ONE (12:30)
[2018-05-17] MEDS: IPRATROPIUM (HFA) 12.9 GM INHALER INH SCH ×2 (13:24→19:32)
[2018-05-17] MEDS: ALBUTEROL HFA 8 GM INHALER INH SCH ×2 (13:24→19:32)
--- NOTE | 2018-05-17 15:24 | PN ---
Date/Time of Note Date/Time of Note DATE: 05/17/18 TIME: 15:22 Assessment/Plan VTE Prophylaxis Risk score (from [facility])>0 risk: 7 SCD applied (from [facility]): Yes Pharmacological prophylaxis: heparin Lines/Catheters IV Catheter Type (from [facility]): Peripheral IV Assessment/Plan Hospital Course 1. Hypoxic respiratory failure: Secondary to pneumonia and COPD exacerbation: s/p intubation -Continue vent support. Pulmonary to manage -Bronchodilators and steroid -Antibiotic for likely pneumonia 2. Shock, secondary to effect of paralytics/sedatives for intubation VS septic shock from pneumonia -IV fluid -Pressor support as needed -Follow-up culture results -Trend lactate Prophylaxis: Heparin, Pepcid Result Diagram: 05/17/18 0753 05/17/18 0753 Results 24hrs Laboratory Tests Test 05/16/18 19:11 05/16/18 20:30 05/16/18 20:40 05/16/18 22:45 White Blood Count 7.1 Red Blood Count 5.46 H Hemoglobin 13.8 Hematocrit 45.3 Mean Corpuscular 83.0 Volume Mean Corpuscular 25.3 L Hemoglobin Mean Corpuscular 30.5 L Hemoglobin Concen t Red Cell 15.5 H Distribution Width Platelet Count 295 Mean Platelet 9.4 Volume Immature 0.300 Granulocytes % Neutrophils % 65.3 Lymphocytes % 24.3 Monocytes % 7.5 Eosinophils % 2.3 Basophils % 0.3 Nucleated Red 0.0 Blood Cells % Immature 0.020 Granulocytes # Neutrophils # 4.7 Lymphocytes # 1.7 Monocytes # 0.5 Eosinophils # 0.2 Basophils # 0.0 Nucleated Red 0.0 Blood Cells # Sodium Level 144 Potassium Level 4.4 Chloride Level 102 Carbon Dioxide 30 Level Anion Gap 12 Blood Urea 14 Nitrogen Creatinine 0.74 Est Glomerular Filtrat Rate mL/min Glucose Level 135 Calcium Level 9.6 Troponin I < 0.012 B-Type 205 Natriuretic Peptide Blood Gas Blood arterial Specimen Source Arterial Blood 05/16/2018 10:03: Date Drawn 49 PM Arterial Blood pH 7.384 (Temp corrected) Arterial Blood 29.6 L pCO2 (Temp correct) Arterial Blood 388.9 H pO2 (Temp corrected) Arterial Blood 17.3 L HCO3 Arterial Blood -6.4 L Base Excess Arterial Blood 99.6 Oxygen Saturation Jason Test N/A Arterial Blood Right Brachial Gas Puncture Site Arterial 0.2 Blood Carboxyhemo globin Arterial Blood 0.2 Methemoglobin Blood Gas A-a O2 294.5 H Differential Oxyhemoglobin 99.2 H Percent Blood Gas 37.0 Temperature Blood Gas 18.0 Respiration Rate Blood Gas Actual 18 Respiration Rate Blood Gas VENT - AC Modality FiO2 100.0 Blood Gas Tidal 500.0 Volume Blood Gas Low 5.0 PEEP Setting Blood Gas 38.0 Inspiratory Pressure Blood Gas KM Notified Whom Blood Gas 05/16/2018 10:14: Notified Time 31 PM POC Venous 6.4 *H 2.7 *H Lactate Test 05/17/18 01:40 05/17/18 07:53 Lactic Acid Level 8.5 *H 7.9 *H White Blood Count 9.9 # Red Blood Count 4.96 Hemoglobin 12.5 Hematocrit 40.9 Mean Corpuscular 82.5 Volume Mean Corpuscular 25.2 L Hemoglobin Mean Corpuscular 30.6 L Hemoglobin Concen t Red Cell 15.8 H Distribution Width Platelet Count 243 Mean Platelet 10.5 H Volume Immature 0.600 H Granulocytes % Neutrophils % 87.9 H Lymphocytes % 8.0 L Monocytes % 3.4 Eosinophils % 0.0 Basophils % 0.1 Nucleated Red 0.0 Blood Cells % Immature 0.060 H Granulocytes # Neutrophils # 8.7 H Lymphocytes # 0.8 Monocytes # 0.3 Eosinophils # 0.0 Basophils # 0.0 Nucleated Red 0.0 Blood Cells # Sodium Level 144 Potassium Level 4.6 Chloride Level 110 Carbon Dioxide 18 #L Level Anion Gap 16 H Blood Urea 18 Nitrogen Creatinine 0.72 Est Glomerular Filtrat Rate mL/min Glucose Level 189 Calcium Level 8.6 Total Bilirubin 0.3 Direct Bilirubin 0.00 Indirect 0.3 Bilirubin Aspartate Amino 31 Transf (AST/SGOT) Alanine 11 L Aminotransferase (ALT/SGPT) Alkaline 80 Phosphatase Total Protein 6.5 Albumin 3.4 Globulin 3.10 Albumin/Globulin 1.09 Ratio Subjective 24 Hr Interval Summary Subjective hx not possible: pt non-verbal Exam/Review of Systems Exam Vitals Vital Signs Date Temp Pulse Resp B/P (MAP) Pulse Ox O2 O2 Flow FiO2 Time Delivery Rate 05/17/18 81 18 99 30 14:52 05/17/18 119/66 Mechanical 11:00 (83) Ventilator 05/17/18 98.0 08:00 05/16/18 5.0 19:21 Intake and Output 3/12/19 3/12/19 3/13/19 1515:00 23:00 07:00 IntakeIntake Total 162.5 ml BalanceBalance 162.5 ml ENMT: intubated Respiratory: clear to auscultation Cardiovascular: regular rate and rhythm Gastrointestinal: soft; No distended Musculoskeletal: nl extremities to inspection Results Results 24hrs Laboratory Tests Test 05/16/18 19:11 05/16/18 20:30 05/16/18 20:40 05/16/18 22:45 White Blood Count 7.1 Red Blood Count 5.46 H Hemoglobin 13.8 Hematocrit 45.3 Mean Corpuscular 83.0 Volume Mean Corpuscular 25.3 L Hemoglobin Mean Corpuscular 30.5 L Hemoglobin Concen t Red Cell 15.5 H Distribution Width Platelet Count 295 Mean Platelet 9.4 Volume Immature 0.300 Granulocytes % Neutrophils % 65.3 Lymphocytes % 24.3 Monocytes % 7.5 Eosinophils % 2.3 Basophils % 0.3 Nucleated Red 0.0 Blood Cells % Immature 0.020 Granulocytes # Neutrophils # 4.7 Lymphocytes # 1.7 Monocytes # 0.5 Eosinophils # 0.2 Basophils # 0.0 Nucleated Red 0.0 Blood Cells # Sodium Level 144 Potassium Level 4.4 Chloride Level 102 Carbon Dioxide 30 Level Anion Gap 12 Blood Urea 14 Nitrogen Creatinine 0.74 Est Glomerular Filtrat Rate mL/min Glucose Level 135 Calcium Level 9.6 Troponin I < 0.012 B-Type 205 Natriuretic Peptide Blood Gas Blood arterial Specimen Source Arterial Blood 05/16/2018 10:03: Date Drawn 49 PM Arterial Blood pH 7.384 (Temp corrected) Arterial Blood 29.6 L pCO2 (Temp correct) Arterial Blood 388.9 H pO2 (Temp corrected) Arterial Blood 17.3 L HCO3 Arterial Blood -6.4 L Base Excess Arterial Blood 99.6 Oxygen Saturation Jason Test N/A Arterial Blood Right Brachial Gas Puncture Site Arterial 0.2 Blood Carboxyhemo globin Arterial Blood 0.2 Methemoglobin Blood Gas A-a O2 294.5 H Differential Oxyhemoglobin 99.2 H Percent Blood Gas 37.0 Temperature Blood Gas 18.0 Respiration Rate Blood Gas Actual 18 Respiration Rate Blood Gas VENT - AC Modality FiO2 100.0 Blood Gas Tidal 500.0 Volume Blood Gas Low 5.0 PEEP Setting Blood Gas 38.0 Inspiratory Pressure Blood Gas Notified Whom Blood Gas 05/16/2018 10:14: Notified Time 31 PM POC Venous 6.4 *H 2.7 *H Lactate Test 05/17/18 01:40 05/17/18 07:53 Lactic Acid Level 8.5 *H 7.9 *H White Blood Count 9.9 # Red Blood Count 4.96 Hemoglobin 12.5 Hematocrit 40.9 Mean Corpuscular 82.5 Volume Mean Corpuscular 25.2 L Hemoglobin Mean Corpuscular 30.6 L Hemoglobin Concen t Red Cell 15.8 H Distribution Width Platelet Count 243 Mean Platelet 10.5 H Volume Immature 0.600 H Granulocytes % Neutrophils % 87.9 H Lymphocytes % 8.0 L Monocytes % 3.4 Eosinophils % 0.0 Basophils % 0.1 Nucleated Red 0.0 Blood Cells % Immature 0.060 H Granulocytes # Neutrophils # 8.7 H Lymphocytes # 0.8 Monocytes # 0.3 Eosinophils # 0.0 Basophils # 0.0 Nucleated Red 0.0 Blood Cells # Sodium Level 144 Potassium Level 4.6 Chloride Level 110 Carbon Dioxide 18 #L Level Anion Gap 16 H Blood Urea 18 Nitrogen Creatinine 0.72 Est Glomerular Filtrat Rate mL/min Glucose Level 189 Calcium Level 8.6 Total Bilirubin 0.3 Direct Bilirubin 0.00 Indirect 0.3 Bilirubin Aspartate Amino 31 Transf (AST/SGOT) Alanine 11 L Aminotransferase (ALT/SGPT) Alkaline 80 Phosphatase Total Protein 6.5 Albumin 3.4 Globulin 3.10 Albumin/Globulin 1.09 Ratio Medications Medication Current Medications Fentanyl (Sublimaze) 25 mcg Q2H PRN IV AGITATION Last administered on 05/16/18at 20:46; Admin Dose 25 MCG; Start 05/16/18 at 20:30 Ondansetron HCl (Zofran Inj) 4 mg Q6H PRN IV NAUSEA AND/OR VOMITING Last administered on 05/17/18at 11:41; Admin Dose 4 MG; Start 05/16/18 at 22:30 Albuterol (Ventolin Hfa) 4 puff Q2H RESP THERAPY PRN INH SHORTNESS OF BREATH; Start 05/16/18 at 22:30 Ipratropium [place] (Atrovent Hfa) 4 puff Q2H RESP THERAPY PRN INH SHORTNESS OF BREATH; Start 05/16/18 at 22:30 Acetaminophen (Tylenol Liquid) 650 mg Q6H PRN PO PAIN LEVEL 1-3 OR FEVER; Start 05/16/18 at 22:30 Famotidine (Pepcid Iv) 20 mg Q12 IV Last administered on 05/17/18 08:28; Admin Dose 20 MG; Start 05/17/18 at 09:00 Heparin Sodium (Porcine) (Heparin (5000 Units/1ml)) 5,000 unit Q12 SC Last administered on 05/17/18 08:29; Admin Dose 5,000 UNIT; Start 05/17/18 at 09:00 Propofol 100 ml @ 2.19 mls/hr PER PROTOCOL IV Last administered on 05/17/18 11:41; Admin Dose 2.19 MLS/HR; Start 05/16/18 at 22:30 Norepinephrine 250 ml @ 1.875 mls/ hr PER PROTOCOL IV ; Start 05/17/18 at 01:30 Azithromycin 250 ml @ 250 mls/hr Q24H IVPB Last administered on 05/17/18 07:47; Admin Dose 250 MLS/HR; Start 05/17/18 at 07:00 Ceftriaxone Sodium 50 ml @ 100 mls/hr Q12H IVPB Last administered on 05/17/18 06:17; Admin Dose 100 MLS/HR; Start 05/17/18 at 06:00 Fentanyl 100 ml @ 2.5 mls/hr TITRATE IV Last administered on 05/17/18 11:41; Admin Dose 5 MLS/HR; Start 05/17/18 at 07:00 Albuterol (Ventolin Hfa) 4 puff Q6H RESP THERAPY INH Last administered on 05/17/18 13:24; Admin Dose 4 PUFF; Start 05/17/18 at 14:00 Ipratropium [place] (Atrovent Hfa) 4 puff Q6H RESP THERAPY INH Last administered on 05/17/18 13:24; Admin Dose 4 PUFF; Start 05/17/18 at 14:00 CIRO FLORES May 17, 2018 15:24
[2018-05-18] VITALS (34 sets, daily range): BP systolic 101–193; BP diastolic 48–97; PULSE 68–138; RESP 18–41
[2018-05-18] MEDS ORDERED: ALBUMIN HUMAN 25% 100 ML IV ONE (00:30)
[2018-05-18] MEDS: IPRATROPIUM (HFA) 12.9 GM INHALER INH SCH ×2 (02:07→07:35)
[2018-05-18] MEDS: ALBUTEROL HFA 8 GM INHALER INH SCH ×2 (02:07→07:34)
[2018-05-18] MEDS: CEFTRIAXONE 1 GM/50 ML (PMX) 50 ML IVPB SCH ×2 (05:14→17:22)
[2018-05-18] MEDS: AZITHROMYCIN 500MG/NS (PMX) 250 ML IVPB SCH (06:36)
[2018-05-18] MEDS: PROPOFOL 100 ML IV SCH (07:10)
[2018-05-18] MEDS: FAMOTIDINE 20 MG INJ IV SCH ×2 (08:21→20:21)
[2018-05-18] MEDS: HEPARIN 5,000 UNIT/1 ML VIAL SC SCH ×2 (08:30→20:22)
--- NOTE | 2018-05-18 09:26 | CONS ---
Assessment/Plan Assessment/Plan Assessment/Plan (Daily) Chest x-ray was reviewed from today which is showing bilateral pulmonary vascular congestion and pulmonary edema. Cardiomegaly is present. Ventilator setting; AC of 18, tidal volume 500, PEEP of 5, 30% FiO2. Patient is off fentanyl and propofol drips for the last 15 minutes. Assessment recommendations; 1. Patient admitted with respiratory failure which is combination of CHF and possibly pneumonia with some element of bronchospasm as the event occurred after the patient had dinner day before yesterday. 2. History of asthma. 3. Persistent mild CHF. 4. Mild anemia. Administer Lasix 40 mg IV push x1 now. Continue to hold sedation. Give the patient a CPAP trial in 30 minutes. If the patient has adequate weaning parameters, she will be extubated. We will obtain follow-up chest x-ray 24 hours. I did have a detailed discussion with the patient's son at bedside and answered all his questions. 35 minutes of critical care time was spent evaluating the patient. Consultation Date/Type/Reason Admit Date/Time May 16, 2018 at 21:35 Initial Consult Date 05/17/18 Type of Consult Pulmonary/critical care Pulmonary consult requested for evaluation of respiratory failure. Patient is an 89-year-old lady who was brought into the emergency room with a 2- day history of shortness of breath with coughing and wheezing. Patient was in respiratory failure and had to be intubated. By the time I saw her in ICU, patient has been taken off sedation and is orally intubated and fairly responsive. History was obtained from patient's family as well as medical records. Past medical history; 1. History of asthma. Medications; reviewed. Allergies; none. Social history; no show any smoking, alcohol or drug abuse. Family history; noncontributory. Patient does have a supportive family. 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 Review of system; unable to be obtained, patient is orally intubated. General exam; elderly female, orally intubated, awake and responsive. Currently in no distress. Date/Time of Note DATE: 05/18/18 TIME: 09:23 24 HR Interval Summary Free Text/Dictation Patient's condition is critical but stable. Patient has been taken off sedation short while ago and is completely awake and responsive. Has remained hemodynamically stable. General exam; elderly woman, awake, currently no distress. Orally intubated. Exam/Review of Systems Exam Vitals Vital Signs Date Temp Pulse Resp B/P (MAP) Pulse Ox O2 O2 Flow FiO2 Time Delivery Rate 05/18/18 30 08:00 05/18/18 78 18 98 07:37 05/18/18 120/54 Mechanical 06:00 (76) Ventilator 05/18/18 97.9 04:00 05/16/18 5.0 19:21 Intake and Output 05/17/18 05/17/18 05/18/18 1515:00 23:00 07:00 IntakeIntake Total 472.02 ml 345.32 ml 506.32 ml OutputOutput Total 470 ml 355 ml 110 ml BalanceBalance 2.02 ml -9.68 ml 396.32 ml Exam H EENT exam; supple neck, positive JVD. No lymphadenopathy. Midline trachea. No thyromegaly. Orally intubated. Pupils are small bilaterally. No neck masses. Chest exam; diminished breath sounds bilaterally. No added sounds. S1-S2 audible, no murmurs. Regular rhythm. Abdomen exam; soft, nontender. No organomegaly. Bowel sounds audible. Extremity exam; no peripheral edema. Pulses 1+. 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 Results Result Diagram: 05/18/18 0504 05/18/18 0504 Results 24hrs Laboratory Tests Test 05/18/18 05:04 White Blood Count 10.5 Red Blood Count 3.99 L Hemoglobin 10.1 L Hematocrit 31.7 #L Mean Corpuscular Volume 79.4 L Mean Corpuscular Hemoglobin 25.3 L Mean Corpuscular Hemoglobin Concent 31.9 L Red Cell Distribution Width 16.5 H Platelet Count 275 Mean Platelet Volume 10.5 H Immature Granulocytes % 0.900 H Neutrophils % 80.3 H Lymphocytes % 10.6 L Monocytes % 8.0 Eosinophils % 0.1 Basophils % 0.1 Nucleated Red Blood Cells % 0.0 Immature Granulocytes # 0.090 H Neutrophils # 8.4 H Lymphocytes # 1.1 Monocytes # 0.8 Eosinophils # 0.0 Basophils # 0.0 Nucleated Red Blood Cells # 0.0 Sodium Level 143 Potassium Level 4.4 Chloride Level 112 H Carbon Dioxide Level 21 Anion Gap 10 # Blood Urea Nitrogen 31 #H Creatinine 1.06 H Est Glomerular Filtrat Rate mL/min Glucose Level 138 # Calcium Level 9.1 Medications Medication Current Medications Fentanyl (Sublimaze) 25 mcg Q2H PRN IV AGITATION Last administered on 05/16/18 20:46; Admin Dose 25 MCG; Start 05/16/18 at 20:30 Ondansetron HCl (Zofran Inj) 4 mg Q6H PRN IV NAUSEA AND/OR VOMITING Last administered on 05/17/18 11:41; Admin Dose 4 MG; Start 05/16/18 at 22:30 Albuterol (Ventolin Hfa) 4 puff Q2H RESP THERAPY PRN INH SHORTNESS OF BREATH; Start 05/16/18 at 22:30 Ipratropium [place] (Atrovent Hfa) 4 puff Q2H RESP THERAPY PRN INH SHORTNESS OF BREATH; Start 05/16/18 at 22:30 Acetaminophen (Tylenol Liquid) 650 mg Q6H PRN PO PAIN LEVEL 1-3 OR FEVER; Start 05/16/18 at 22:30 Famotidine (Pepcid Iv) 20 mg Q12 IV Last administered on 05/18/18 08:21; Admin Dose 20 MG; Start 05/17/18 at 09:00 Heparin Sodium (Porcine) (Heparin (5000 Units/1ml)) 5,000 unit Q12 SC Last administered on 05/18/18 08:30; Admin Dose 5,000 UNIT; Start 05/17/18 at 09:00 Propofol 100 ml @ 2.19 mls/hr PER PROTOCOL IV Last administered on 05/18/18 07:10; Admin Dose 8.76 MLS/HR; Start 05/16/18 at 22:30 Norepinephrine 250 ml @ 1.875 mls/ hr PER PROTOCOL IV ; Start 05/17/18 at 01:30 Azithromycin 250 ml @ 250 mls/hr Q24H IVPB Last administered on 05/18/18 06:36; Admin Dose 250 MLS/HR; Start 05/17/18 at 07:00 Ceftriaxone Sodium 50 ml @ 100 mls/hr Q12H IVPB Last administered on 05/18/18 05:14; Admin Dose 100 MLS/HR; Start 05/17/18 at 06:00 Fentanyl 100 ml @ 2.5 mls/hr TITRATE IV Last administered on 05/17/18 17:46; Admin Dose 5 MLS/HR; Start 05/17/18 at 07:00 Albuterol (Ventolin Hfa) 4 puff Q6H RESP THERAPY INH Last administered on 05/18/18 07:34; Admin Dose 4 PUFF; Start 05/17/18 at 14:00 Ipratropium [place] (Atrovent Hfa) 4 puff Q6H RESP THERAPY INH Last administered on 05/18/18at 07:35; Admin Dose 4 PUFF; Start 05/17/18 at 14:00 MONICA STORY May 18, 2018 09:26
[2018-05-18] MEDS ORDERED: FUROSEMIDE 40 MG INJ IV ONE (09:30)
--- NOTE | 2018-05-18 12:27 | PN ---
Date/Time of Note Date/Time of Note DATE: 05/18/18 TIME: 12:24 Assessment/Plan VTE Prophylaxis Risk score (from [facility])>0 risk: 10 SCD applied (from [facility]): Yes Pharmacological prophylaxis: heparin Lines/Catheters IV Catheter Type (from [facility]): Peripheral IV Urinary Cath still in place: Yes Reason Cath still needed: urinary retention Assessment/Plan Hospital Course 83 yo female with diastolic chronic CHF presented with acute respiratory failuer 2/2 dCHF and pneumonia - s/p extubation this AM, monitor respiratory status on NC - Diuretics - Abx - PT/OT Result Diagram: 05/18/18 0504 05/18/18 0504 Results 24hrs Laboratory Tests Test 05/18/18 05:04 05/18/18 09:28 05/18/18 10:45 White Blood Count 10.5 Red Blood Count 3.99 L Hemoglobin 10.1 L Hematocrit 31.7 #L Mean Corpuscular Volume 79.4 L Mean Corpuscular Hemoglobin 25.3 L Mean Corpuscular 31.9 L Hemoglobin Concent Red Cell Distribution Width 16.5 H Platelet Count 275 Mean Platelet Volume 10.5 H Immature Granulocytes % 0.900 H Neutrophils % 80.3 H Lymphocytes % 10.6 L Monocytes % 8.0 Eosinophils % 0.1 Basophils % 0.1 Nucleated Red Blood Cells % 0.0 Immature Granulocytes # 0.090 H Neutrophils # 8.4 H Lymphocytes # 1.1 Monocytes # 0.8 Eosinophils # 0.0 Basophils # 0.0 Nucleated Red Blood Cells # 0.0 Sodium Level 143 Potassium Level 4.4 Chloride Level 112 H Carbon Dioxide Level 21 Anion Gap 10 # Blood Urea Nitrogen 31 #H Creatinine 1.06 H Est Glomerular Filtrat Rate mL/min Glucose Level 138 # Calcium Level 9.1 Lactic Acid Level 2.8 *H Blood Gas Specimen Source Blood arterial Arterial Blood Date Drawn 05/18/2018 10:35:02 AM Arterial Blood pH 7.421 (Temp corrected) Arterial Blood pCO2 38.5 (Temp correct) Arterial Blood pO2 83.4 (Temp corrected) Arterial Blood HCO3 24.5 Arterial Blood Base Excess 0.2 Arterial Blood 96.0 Oxygen Saturation Jason Test ACCEPTAB Arterial Blood Gas Left Radial Puncture Site Arterial 0.4 Blood Carboxyhemoglobin Arterial Blood 0.3 Methemoglobin Blood Gas A-a O2 85.3 H Differential Oxyhemoglobin Percent 95.3 Blood Gas Temperature 37.0 Blood Gas Actual 20 Respiration Rate Blood Gas Modality VENT - CPAP FiO2 30.0 Blood Gas Low PEEP Setting 5.0 Blood Gas Pressure Support 10 Blood Gas Notified Whom TM Blood Gas Notified Time 05/18/2018 10:43:04 AM Subjective 24 Hr Interval Summary Free Text/Dictation Extubated this AM Breathing comfortably No compliants Received lasix thsi AM Exam/Review of Systems Exam Vitals Vital Signs Date Temp Pulse Resp B/P (MAP) Pulse Ox O2 O2 Flow FiO2 Time Delivery Rate 05/18/18 98 3.0 11:20 05/18/18 24 30 11:20 05/18/18 112 170/76 Nasal 11:00 (107) Cannula 05/18/18 98.6 08:00 Intake and Output 05/17/18 05/17/18 05/18/18 1515:00 23:00 07:00 IntakeIntake Total 472.02 ml 345.32 ml 520.08 ml OutputOutput Total 470 ml 355 ml 110 ml BalanceBalance 2.02 ml -9.68 ml 410.08 ml Constitutional: alert, oriented, well developed Psych: no complaints, nl mood/affect Head: normocephalic, atraumatic Eyes: nl conjunctiva, EOMI, nl lids, nl sclera, PERRL ENMT: nl external ears & nose, nl lips & teeth, nl nasal mucosa & septum Neck: supple, non-tender Respiratory: clear to auscultation, normal air movement Cardiovascular: regular rate and rhythm, nl pulses Gastrointestinal: soft, nl liver, spleen, non-tender Musculoskeletal: nl extremities to inspection, nl gait and stance Extremities: normal pulses 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, nl mental status, nl speech, nl strength Skin: nl turgor; No rash or lesions Lymph: nl lymph nodes Results Results 24hrs Laboratory Tests Test 05/18/18 05:04 05/18/18 09:28 05/18/18 10:45 White Blood Count 10.5 Red Blood Count 3.99 L Hemoglobin 10.1 L Hematocrit 31.7 #L Mean Corpuscular Volume 79.4 L Mean Corpuscular Hemoglobin 25.3 L Mean Corpuscular 31.9 L Hemoglobin Concent Red Cell Distribution Width 16.5 H Platelet Count 275 Mean Platelet Volume 10.5 H Immature Granulocytes % 0.900 H Neutrophils % 80.3 H Lymphocytes % 10.6 L Monocytes % 8.0 Eosinophils % 0.1 Basophils % 0.1 Nucleated Red Blood Cells % 0.0 Immature Granulocytes # 0.090 H Neutrophils # 8.4 H Lymphocytes # 1.1 Monocytes # 0.8 Eosinophils # 0.0 Basophils # 0.0 Nucleated Red Blood Cells # 0.0 Sodium Level 143 Potassium Level 4.4 Chloride Level 112 H Carbon Dioxide Level 21 Anion Gap 10 # Blood Urea Nitrogen 31 #H Creatinine 1.06 H Est Glomerular Filtrat Rate mL/min Glucose Level 138 # Calcium Level 9.1 Lactic Acid Level 2.8 *H Blood Gas Specimen Source Blood arterial Arterial Blood Date Drawn 05/18/2018 10:35:02 AM Arterial Blood pH 7.421 (Temp corrected) Arterial Blood pCO2 38.5 (Temp correct) Arterial Blood pO2 83.4 (Temp corrected) Arterial Blood HCO3 24.5 Arterial Blood Base Excess 0.2 Arterial Blood 96.0 Oxygen Saturation Jason Test ACCEPTAB Arterial Blood Gas Left Radial Puncture Site Arterial 0.4 Blood Carboxyhemoglobin Arterial Blood 0.3 Methemoglobin Blood Gas A-a O2 85.3 H Differential Oxyhemoglobin Percent 95.3 Blood Gas Temperature 37.0 Blood Gas Actual 20 Respiration Rate Blood Gas Modality VENT - CPAP FiO2 30.0 Blood Gas Low PEEP Setting 5.0 Blood Gas Pressure Support 10 Blood Gas Notified Whom TM Blood Gas Notified Time 05/18/2018 10:43:04 AM Medications Medication Current Medications Fentanyl (Sublimaze) 25 mcg Q2H PRN IV AGITATION Last administered on 05/16/18at 20:46; Admin Dose 25 MCG; Start 05/16/18 at 20:30 Ondansetron HCl (Zofran Inj) 4 mg Q6H PRN IV NAUSEA AND/OR VOMITING Last administered on 05/17/18at 11:41; Admin Dose 4 MG; Start 05/16/18 at 22:30 Albuterol (Ventolin Hfa) 4 puff Q2H RESP THERAPY PRN INH SHORTNESS OF BREATH; Start 05/16/18 at 22:30 Ipratropium [place] (Atrovent Hfa) 4 puff Q2H RESP THERAPY PRN INH SHORTNESS OF BREATH; Start 05/16/18 at 22:30 Acetaminophen (Tylenol Liquid) 650 mg Q6H PRN PO PAIN LEVEL 1-3 OR FEVER; Start 05/16/18 at 22:30 Famotidine (Pepcid Iv) 20 mg Q12 IV Last administered on 05/18/18 08:21; Admin Dose 20 MG; Start 05/17/18 at 09:00 Heparin Sodium (Porcine) (Heparin (5000 Units/1ml)) 5,000 unit Q12 SC Last administered on 05/18/18 08:30; Admin Dose 5,000 UNIT; Start 05/17/18 at 09:00 Propofol 100 ml @ 2.19 mls/hr PER PROTOCOL IV Last administered on 05/18/18 07:10; Admin Dose 8.76 MLS/HR; Start 05/16/18 at 22:30 Norepinephrine 250 ml @ 1.875 mls/ hr PER PROTOCOL IV ; Start 05/17/18 at 01:30 Azithromycin 250 ml @ 250 mls/hr Q24H IVPB Last administered on 05/18/18 06:36; Admin Dose 250 MLS/HR; Start 05/17/18 at 07:00 Ceftriaxone Sodium 50 ml @ 100 mls/hr Q12H IVPB Last administered on 05/18/18 05:14; Admin Dose 100 MLS/HR; Start 05/17/18 at 06:00 Fentanyl 100 ml @ 2.5 mls/hr TITRATE IV Last administered on 05/17/18 17:46; Admin Dose 5 MLS/HR; Start 05/17/18 at 07:00 Albuterol (Ventolin Hfa) 4 puff Q6H RESP THERAPY INH Last administered on 05/18/18 07:34; Admin Dose 4 PUFF; Start 05/17/18 at 14:00 Ipratropium [place] (Atrovent Hfa) 4 puff Q6H RESP THERAPY INH Last administered on 05/18/18 07:35; Admin Dose 4 PUFF; Start 05/17/18 at 14:00 MARIANO WRIGHT MD May 18, 2018 12:27
[2018-05-18] MEDS ORDERED: LORAZEPAM 2 MG INJ ONE (12:49)
[2018-05-18] MEDS ORDERED: LORAZEPAM 2 MG INJ IV PRN (13:00)
[2018-05-18] MEDS: ALBUTEROL/IPRATROPIUM (NEB) 3 ML AMP HHN SCH ×2 (14:58→20:12)
[2018-05-18] MEDS: FUROSEMIDE 40 MG INJ IV SCH (17:22)
[2018-05-19] VITALS (24 sets, daily range): BP systolic 117–153; BP diastolic 59–88; PULSE 86–135; RESP 17–28
[2018-05-19] MEDS: ALBUTEROL/IPRATROPIUM (NEB) 3 ML AMP HHN SCH ×4 (01:45→20:00)
[2018-05-19] MEDS: CEFTRIAXONE 1 GM/50 ML (PMX) 50 ML IVPB SCH ×2 (05:04→17:18)
[2018-05-19] MEDS: FUROSEMIDE 40 MG INJ IV SCH ×2 (05:04→17:18)
[2018-05-19] MEDS: AZITHROMYCIN 500MG/NS (PMX) 250 ML IVPB SCH (06:11)
[2018-05-19] MEDS: FAMOTIDINE 20 MG INJ IV SCH ×2 (08:26→20:32)
[2018-05-19] MEDS: POTASSIUM CHLORIDE 100 ML IVPB SCH ×2 (08:26→11:41)
[2018-05-19] MEDS: HEPARIN 5,000 UNIT/1 ML VIAL SC SCH ×2 (08:52→20:36)
--- NOTE | 2018-05-19 10:02 | CONS ---
Consult Date/Type/Reason Admit Date/Time May 16, 2018 at 21:35 Initial Consult Date 05/17/18 Type of Consult Pulmonary Date/Time of Note DATE: 05/19/18 TIME: 09:59 Subjective Patient intubated yesterday. Stable this morning on nasal cannula O2 remains awake alert and oriented pending PT and speech therapy evaluations. Mild tachycardia chest x-ray shows ongoing pulmonary edema. Objective Vital Signs Date Temp Pulse Resp B/P (MAP) Pulse Ox O2 O2 Flow FiO2 Time Delivery Rate 05/19/18 119 24 126/72 92 Nasal 3.0 09:00 (90) Cannula 05/19/18 98.2 08:00 05/18/18 40 20:05 Intake and Output 05/18/18 05/18/18 05/19/18 1515:00 23:00 07:00 IntakeIntake Total 373.76 ml 0 ml 50 ml OutputOutput Total 1740 ml 1450 ml 1175 ml BalanceBalance -1366.24 ml -1450 ml -1125 ml Exam GENERAL: VITAL SIGNS: per chart NECK: Supple. No JVD or lymphadenopathy. CARDIAC EXAM: S1, S2. No added sounds or murmurs. CHEST: Diminished air entry bilaterally ABDOMEN: Soft, nontender. No guarding or rebound. EXTREMITIES: No cyanosis, clubbing or edema. NEUROLOGIC: Generalized weakness. No focal deficits. Elderly lady appears comfortable at rest no acute distress Vent Setting Ventilator Support Mode: CPAP, PS Fraction of Inspired Oxygen pe: 30 Positive End Expiratory Pressu: 5.0 Results/Medications Result Diagram: 05/19/18 0520 05/19/18 0520 Results 24 hrs Laboratory Tests Test 05/18/18 10:45 05/18/18 15:00 05/19/18 05:20 Blood Gas Specimen Blood arterial Blood arterial Source Arterial Blood Date 05/18/2018 10:35:02 05/18/2018 3:05:43 PM Drawn AM Arterial Blood pH 7.421 7.399 (Temp corrected) Arterial Blood pCO2 38.5 47.5 H (Temp correct) Arterial Blood pO2 83.4 99.9 H (Temp corrected) Arterial Blood HCO3 24.5 28.7 H Arterial Blood Base 0.2 3.1 H Excess Arterial Blood 96.0 97.0 Oxygen Saturation Jason Test ACCEPTAB ACCEPTAB Arterial Blood Gas Left Radial Left Radial Puncture Site Arterial 0.4 0.3 Blood Carboxyhemoglob in Arterial Blood 0.3 0.1 Methemoglobin Blood Gas A-a O2 85.3 H 203.2 H Differential Oxyhemoglobin Percent 95.3 96.6 Blood Gas Temperature 37.0 37.0 Blood Gas Actual 20 31 Respiration Rate Blood Gas Modality VENT - CPAP MASK - BIPAP FiO2 30.0 50.0 Blood Gas Low PEEP 5.0 Setting Blood Gas Pressure 10 15/5 Support Blood Gas Notified TM DT Whom Blood Gas Notified 05/18/2018 10:43:04 05/18/2018 3:26:49 PM Time AM Blood Gas Respiration 14.0 Rate Blood Gas IPAP/EPAP 10 Ratio White Blood Count 8.6 Red Blood Count 4.41 Hemoglobin 11.0 L Hematocrit 36.1 L Mean Corpuscular 81.9 L Volume Mean Corpuscular 24.9 L Hemoglobin Mean Corpuscular 30.5 L Hemoglobin Concent Red Cell Distribution 16.5 H Width Platelet Count 246 Mean Platelet Volume 10.0 Immature Granulocytes 0.300 % Neutrophils % 72.2 Lymphocytes % 17.2 Monocytes % 9.5 Eosinophils % 0.7 Basophils % 0.1 Nucleated Red Blood 0.0 Cells % Immature Granulocytes 0.030 # Neutrophils # 6.2 Lymphocytes # 1.5 Monocytes # 0.8 Eosinophils # 0.1 Basophils # 0.0 Nucleated Red Blood 0.0 Cells # Sodium Level 141 Potassium Level 3.2 L Chloride Level 101 # Carbon Dioxide Level 34 #H Anion Gap 6 Blood Urea Nitrogen 29 H Creatinine 0.83 Est Glomerular Filtrat Rate mL/min Glucose Level 118 Calcium Level 8.6 Medications Current Medications Fentanyl (Sublimaze) 25 mcg Q2H PRN IV AGITATION Last administered on 05/16/18at 20:46; Admin Dose 25 MCG; Start 05/16/18 at 20:30 Ondansetron HCl (Zofran Inj) 4 mg Q6H PRN IV NAUSEA AND/OR VOMITING Last administered on 05/17/18at 11:41; Admin Dose 4 MG; Start 05/16/18 at 22:30 Albuterol (Ventolin Hfa) 4 puff Q2H RESP THERAPY PRN INH SHORTNESS OF BREATH; Start 05/16/18 at 22:30 Ipratropium [place] (Atrovent Hfa) 4 puff Q2H RESP THERAPY PRN INH SHORTNESS OF BREATH; Start 05/16/18 at 22:30 Acetaminophen (Tylenol Liquid) 650 mg Q6H PRN PO PAIN LEVEL 1-3 OR FEVER; Start 05/16/18 at 22:30 Famotidine (Pepcid Iv) 20 mg Q12 IV Last administered on 05/19/18 08:26; Admin Dose 20 MG; Start 05/17/18 at 09:00 Heparin Sodium (Porcine) (Heparin (5000 Units/1ml)) 5,000 unit Q12 SC Last administered on 05/19/18 08:52; Admin Dose 5,000 UNIT; Start 05/17/18 at 09:00 Propofol 100 ml @ 2.19 mls/hr PER PROTOCOL IV Last administered on 05/18/18 07:10; Admin Dose 8.76 MLS/HR; Start 05/16/18 at 22:30 Norepinephrine 250 ml @ 1.875 mls/ hr PER PROTOCOL IV ; Start 05/17/18 at 01:30 Azithromycin 250 ml @ 250 mls/hr Q24H IVPB Last administered on 05/19/18 06:11; Admin Dose 250 MLS/HR; Start 05/17/18 at 07:00 Ceftriaxone Sodium 50 ml @ 100 mls/hr Q12H IVPB Last administered on 05/19/18 05:04; Admin Dose 100 MLS/HR; Start 05/17/18 at 06:00 Fentanyl 100 ml @ 2.5 mls/hr TITRATE IV Last administered on 05/17/18 17:46; Admin Dose 5 MLS/HR; Start 05/17/18 at 07:00 Lorazepam (Ativan) 1 mg Q4H PRN IV AGITATION/ANXIETY Last administered on 05/18/18 13:06; Admin Dose 1 MG; Start 05/18/18 at 13:00 Furosemide (Lasix) 40 mg BID DIURETICS IV Last administered on 05/19/18 05:04; Admin Dose 40 MG; Start 05/18/18 at 18:00 Albuterol/ Ipratropium (Duoneb) 3 ml Q6H RESP THERAPY HHN Last administered on 05/19/18 07:36; Admin Dose 3 ML; Start 05/18/18 at 14:00 Potassium Chloride 100 ml @ 50 mls/hr Q2H IVPB Last administered on 3/15/19at 08:26; Admin Dose 50 MLS/HR; Start 05/19/18 at 07:00; Stop 05/19/18 at 10:59 Assessment/Plan Hospital Course (Demo Recall) Assessment 1. Acute hypoxemic respiratory failure secondary to congestive cardiac failure 2. Aspiration risk 3. Questionable history of asthma Plan 1. Speech therapy evaluation aspiration precautions 2. Continue diuresis as tolerated 3. PT evaluation 4. Cardiac recommendations Patient stable to transfer to telemetry Critical care time 40 minutes ABRAN GRAVES MD, [facility] May 19, 2018 10:02
--- NOTE | 2018-05-19 12:35 | PN ---
Date/Time of Note Date/Time of Note DATE: 05/19/18 TIME: 12:34 Assessment/Plan VTE Prophylaxis Risk score (from Nsg)>0 risk: 8 SCD applied (from Nsg): Yes Pharmacological prophylaxis: heparin Lines/Catheters IV Catheter Type (from Nrsg): Saline Lock Urinary Cath still in place: Yes Reason Cath still needed: urinary retention Assessment/Plan Hospital Course 83 yo female with diastolic chronic CHF presented with acute respiratory failuer 2/2 dCHF and pneumonia - s/p extubation 05/18 now stable on NC - Continues on IV lasix 40 BID, will likely convert to PO tomorrow - Abx for pneumonia, ID consulted - PT/OT Result Diagram: 05/19/18 0520 05/19/18 0520 Results 24hrs Laboratory Tests Test 05/18/18 15:00 05/19/18 05:20 Blood Gas Specimen Source Blood arterial Arterial Blood Date Drawn 05/18/2018 3:05:43 PM Arterial Blood pH (Temp corrected) 7.399 Arterial Blood pCO2 (Temp correct) 47.5 H Arterial Blood pO2 (Temp corrected) 99.9 H Arterial Blood HCO3 28.7 H Arterial Blood Base Excess 3.1 H Arterial Blood Oxygen Saturation 97.0 Jason Test ACCEPTAB Arterial Blood Gas Puncture Site Left Radial Arterial Blood Carboxyhemoglobin 0.3 Arterial Blood Methemoglobin 0.1 Blood Gas A-a O2 Differential 203.2 H Oxyhemoglobin Percent 96.6 Blood Gas Temperature 37.0 Blood Gas Respiration Rate 14.0 Blood Gas Actual Respiration Rate 31 Blood Gas Modality MASK - BIPAP FiO2 50.0 Blood Gas Pressure Support 15/5 Blood Gas IPAP/EPAP Ratio 10 Blood Gas Notified Whom DT Blood Gas Notified Time 05/18/2018 3:26:49 PM White Blood Count 8.6 Red Blood Count 4.41 Hemoglobin 11.0 L Hematocrit 36.1 L Mean Corpuscular Volume 81.9 L Mean Corpuscular Hemoglobin 24.9 L Mean Corpuscular Hemoglobin Concent 30.5 L Red Cell Distribution Width 16.5 H Platelet Count 246 Mean Platelet Volume 10.0 Immature Granulocytes % 0.300 Neutrophils % 72.2 Lymphocytes % 17.2 Monocytes % 9.5 Eosinophils % 0.7 Basophils % 0.1 Nucleated Red Blood Cells % 0.0 Immature Granulocytes # 0.030 Neutrophils # 6.2 Lymphocytes # 1.5 Monocytes # 0.8 Eosinophils # 0.1 Basophils # 0.0 Nucleated Red Blood Cells # 0.0 Sodium Level 141 Potassium Level 3.2 L Chloride Level 101 # Carbon Dioxide Level 34 #H Anion Gap 6 Blood Urea Nitrogen 29 H Creatinine 0.83 Est Glomerular Filtrat Rate mL/min Glucose Level 118 Calcium Level 8.6 Subjective 24 Hr Interval Summary Free Text/Dictation Excellent diuresis Still with infiltrate on XR Not much sputum respiratory status much betrter Exam/Review of Systems Exam Vitals Vital Signs Date Temp Pulse Resp B/P (MAP) Pulse Ox O2 O2 Flow FiO2 Time Delivery Rate 05/19/18 98.4 106 25 145/73 97 Nasal 3.0 12:00 (97) Cannula 05/18/18 40 20:05 Intake and Output 05/18/18 05/18/18 05/19/18 1515:00 23:00 07:00 IntakeIntake Total 373.76 ml 0 ml 50 ml OutputOutput Total 1740 ml 1450 ml 1175 ml BalanceBalance -1366.24 ml -1450 ml -1125 ml Constitutional: alert, oriented, well developed Psych: no complaints, nl mood/affect Head: normocephalic, atraumatic Eyes: nl conjunctiva, EOMI, nl lids, nl sclera, PERRL ENMT: nl external ears & nose, nl lips & teeth, nl nasal mucosa & septum Neck: supple, non-tender Respiratory: clear to auscultation, normal air movement Cardiovascular: regular rate and rhythm, nl pulses Gastrointestinal: soft, nl liver, spleen, non-tender Musculoskeletal: nl extremities to inspection, nl gait and stance Extremities: normal pulses Neurological: 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 CUTTER II-XII 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, nl mental status, nl speech, nl strength Skin: nl turgor; No rash or lesions Lymph: nl lymph nodes Results Results 24hrs Laboratory Tests Test 05/18/18 15:00 05/19/18 05:20 Blood Gas Specimen Source Blood arterial Arterial Blood Date Drawn 05/18/2018 3:05:43 PM Arterial Blood pH (Temp corrected) 7.399 Arterial Blood pCO2 (Temp correct) 47.5 H Arterial Blood pO2 (Temp corrected) 99.9 H Arterial Blood HCO3 28.7 H Arterial Blood Base Excess 3.1 H Arterial Blood Oxygen Saturation 97.0 Jason Test ACCEPTAB Arterial Blood Gas Puncture Site Left Radial Arterial Blood Carboxyhemoglobin 0.3 Arterial Blood Methemoglobin 0.1 Blood Gas A-a O2 Differential 203.2 H Oxyhemoglobin Percent 96.6 Blood Gas Temperature 37.0 Blood Gas Respiration Rate 14.0 Blood Gas Actual Respiration Rate 31 Blood Gas Modality MASK - BIPAP FiO2 50.0 Blood Gas Pressure Support 15/5 Blood Gas IPAP/EPAP Ratio 10 Blood Gas Notified Whom DT Blood Gas Notified Time 05/18/2018 3:26:49 PM White Blood Count 8.6 Red Blood Count 4.41 Hemoglobin 11.0 L Hematocrit 36.1 L Mean Corpuscular Volume 81.9 L Mean Corpuscular Hemoglobin 24.9 L Mean Corpuscular Hemoglobin Concent 30.5 L Red Cell Distribution Width 16.5 H Platelet Count 246 Mean Platelet Volume 10.0 Immature Granulocytes % 0.300 Neutrophils % 72.2 Lymphocytes % 17.2 Monocytes % 9.5 Eosinophils % 0.7 Basophils % 0.1 Nucleated Red Blood Cells % 0.0 Immature Granulocytes # 0.030 Neutrophils # 6.2 Lymphocytes # 1.5 Monocytes # 0.8 Eosinophils # 0.1 Basophils # 0.0 Nucleated Red Blood Cells # 0.0 Sodium Level 141 Potassium Level 3.2 L Chloride Level 101 # Carbon Dioxide Level 34 #H Anion Gap 6 Blood Urea Nitrogen 29 H Creatinine 0.83 Est Glomerular Filtrat Rate mL/min Glucose Level 118 Calcium Level 8.6 Medications Medication Current Medications Fentanyl (Sublimaze) 25 mcg Q2H PRN IV AGITATION Last administered on 05/16/18at 20:46; Admin Dose 25 MCG; Start 05/16/18 at 20:30 Ondansetron HCl (Zofran Inj) 4 mg Q6H PRN IV NAUSEA AND/OR VOMITING Last adm inistered on 05/17/18at 11:41; Admin Dose 4 MG; Start 05/16/18 at 22:30 Albuterol (Ventolin Hfa) 4 puff Q2H RESP THERAPY PRN INH SHORTNESS OF BREATH; Start 05/16/18 at 22:30 Ipratropium [place] (Atrovent Hfa) 4 puff Q2H RESP THERAPY PRN INH SHORTNESS OF BREATH; Start 05/16/18 at 22:30 Acetaminophen (Tylenol Liquid) 650 mg Q6H PRN PO PAIN LEVEL 1-3 OR FEVER; Start 05/16/18 at 22:30 Famotidine (Pepcid Iv) 20 mg Q12 IV Last administered on 05/19/18 08:26; Admin Dose 20 MG; Start 05/17/18 at 09:00 Heparin Sodium (Porcine) (Heparin (5000 Units/1ml)) 5,000 unit Q12 SC Last administered on 05/19/18 08:52; Admin Dose 5,000 UNIT; Start 05/17/18 at 09:00 Propofol 100 ml @ 2.19 mls/hr PER PROTOCOL IV Last administered on 05/18/18 07:10; Admin Dose 8.76 MLS/HR; Start 05/16/18 at 22:30 Norepinephrine 250 ml @ 1.875 mls/ hr PER PROTOCOL IV ; Start 05/17/18 at 01:30 Azithromycin 250 ml @ 250 mls/hr Q24H IVPB Last administered on 05/19/18 06:11; Admin Dose 250 MLS/HR; Start 05/17/18 at 07:00 Ceftriaxone Sodium 50 ml @ 100 mls/hr Q12H IVPB Last administered on 05/19/18 05:04; Admin Dose 100 MLS/HR; Start 05/17/18 at 06:00 Fentanyl 100 ml @ 2.5 mls/hr TITRATE IV Last administered on 05/17/18 17:46; Admin Dose 5 MLS/HR; Start 05/17/18 at 07:00 Lorazepam (Ativan) 1 mg Q4H PRN IV AGITATION/ANXIETY Last administered on 05/18/18 13:06; Admin Dose 1 MG; Start 05/18/18 at 13:00 Furosemide (Lasix) 40 mg BID DIURETICS IV Last administered on 05/19/18 05:04; Admin Dose 40 MG; Start 05/18/18 at 18:00 Albuterol/ Ipratropium (Duoneb) 3 ml Q6H RESP THERAPY HHN Last administered on 05/19/18 07:36; Admin Dose 3 ML; Start 05/18/18 at 14:00 MARIANO WRIGHT MD May 19, 2018 12:35
--- NOTE | 2018-05-19 16:43 | CONS ---
Consultation Date/Type/Reason Admit Date/Time May 16, 2018 at 21:35 Initial Consult Date 05/17/18 Date/Time of Note DATE: 05/19/18 TIME: 16:42 24 HR Interval Summary Free Text/Dictation Following patient's hospital course. I made contact with family members on the day of admission and continue to follow throughout the ICU stay. I will not bring up the questions of quality of care or other palliative care issues as it is early in patient's admission. She is doing well be transferred to telemetry today peer Exam/Review of Systems Exam Vitals Vital Signs Date Temp Pulse Resp B/P (MAP) Pulse Ox O2 O2 Flow FiO2 Time Delivery Rate 05/19/18 102 16:00 05/19/18 98.6 19 140/70 94 Nasal 3.0 16:00 (93) Cannula 05/18/18 40 20:05 Intake and Output 05/18/18 05/18/18 05/19/18 1515:00 23:00 07:00 IntakeIntake Total 373.76 ml 0 ml 50 ml OutputOutput Total 1740 ml 1450 ml 1175 ml BalanceBalance -1366.24 ml -1450 ml -1125 ml Constitutional: alert Psych: confusion Neurological: BUSINESS DEVELOPMENT MANAGER II-XII intact, nl mental status, nl speech, nl strength Results Result Diagram: 05/19/18 0520 05/19/18 0520 Results 24hrs Laboratory Tests Test 05/19/18 05:20 White Blood Count 8.6 Red Blood Count 4.41 Hemoglobin 11.0 L Hematocrit 36.1 L Mean Corpuscular Volume 81.9 L Mean Corpuscular Hemoglobin 24.9 L Mean Corpuscular Hemoglobin Concent 30.5 L Red Cell Distribution Width 16.5 H Platelet Count 246 Mean Platelet Volume 10.0 Immature Granulocytes % 0.300 Neutrophils % 72.2 Lymphocytes % 17.2 Monocytes % 9.5 Eosinophils % 0.7 Basophils % 0.1 Nucleated Red Blood Cells % 0.0 Immature Granulocytes # 0.030 Neutrophils # 6.2 Lymphocytes # 1.5 Monocytes # 0.8 Eosinophils # 0.1 Basophils # 0.0 Nucleated Red Blood Cells # 0.0 Sodium Level 141 Potassium Level 3.2 L Chloride Level 101 # Carbon Dioxide Level 34 #H Anion Gap 6 Blood Urea Nitrogen 29 H Creatinine 0.83 Est Glomerular Filtrat Rate mL/min Glucose Level 118 Calcium Level 8.6 Medications Medication Current Medications Fentanyl (Sublimaze) 25 mcg Q2H PRN IV AGITATION Last administered on 05/16/18 20:46; Admin Dose 25 MCG; Start 05/16/18 at 20:30 Ondansetron HCl (Zofran Inj) 4 mg Q6H PRN IV NAUSEA AND/OR VOMITING Last a dministered on 05/17/18 11:41; Admin Dose 4 MG; Start 05/16/18 at 22:30 Albuterol (Ventolin Hfa) 4 puff Q2H RESP THERAPY PRN INH SHORTNESS OF BREATH; Start 05/16/18 at 22:30 Ipratropium [place] (Atrovent Hfa) 4 puff Q2H RESP THERAPY PRN INH SHORTNESS OF BREATH; Start 05/16/18 at 22:30 Acetaminophen (Tylenol Liquid) 650 mg Q6H PRN PO PAIN LEVEL 1-3 OR FEVER; Start 05/16/18 at 22:30 Famotidine (Pepcid Iv) 20 mg Q12 IV Last administered on 05/19/18 08:26; Admin Dose 20 MG; Start 05/17/18 at 09:00 Heparin Sodium (Porcine) (Heparin (5000 Units/1ml)) 5,000 unit Q12 SC Last administered on 05/19/18 08:52; Admin Dose 5,000 UNIT; Start 05/17/18 at 09:00 Propofol 100 ml @ 2.19 mls/hr PER PROTOCOL IV Last administered on 05/18/18 07:10; Admin Dose 8.76 MLS/HR; Start 05/16/18 at 22:30 Norepinephrine 250 ml @ 1.875 mls/ hr PER PROTOCOL IV ; Start 05/17/18 at 01:30 Azithromycin 250 ml @ 250 mls/hr Q24H IVPB Last administered on 05/19/18 06:11; Admin Dose 250 MLS/HR; Start 05/17/18 at 07:00 Ceftriaxone Sodium 50 ml @ 100 mls/hr Q12H IVPB Last administered on 05/19/18 05:04; Admin Dose 100 MLS/HR; Start 05/17/18 at 06:00 Fentanyl 100 ml @ 2.5 mls/hr TITRATE IV Last administered on 05/17/18 17:46; Admin Dose 5 MLS/HR; Start 05/17/18 at 07:00 Lorazepam (Ativan) 1 mg Q4H PRN IV AGITATION/ANXIETY Last administered on 05/18/18at 13:06; Admin Dose 1 MG; Start 05/18/18 at 13:00 Furosemide (Lasix) 40 mg BID DIURETICS IV Last administered on 05/19/18at 05:04; Admin Dose 40 MG; Start 05/18/18 at 18:00 Albuterol/ Ipratropium (Duoneb) 3 ml Q6H RESP THERAPY HHN Last administered on 05/19/18at 14:57; Admin Dose 3 ML; Start 05/18/18 at 14:00 MATTHEW BUSTILLO May 19, 2018 16:43
[2018-05-20] VITALS (16 sets, daily range): BP systolic 98–141; BP diastolic 57–92; PULSE 80–106; RESP 17–26
[2018-05-20] MEDS: ALBUTEROL/IPRATROPIUM (NEB) 3 ML AMP HHN SCH ×4 (01:26→19:51)
[2018-05-20] MEDS: CEFTRIAXONE 1 GM/50 ML (PMX) 50 ML IVPB SCH ×2 (06:07→17:23)
[2018-05-20] MEDS: FUROSEMIDE 40 MG INJ IV SCH ×2 (06:07→17:23)
--- NOTE | 2018-05-20 09:28 | PN ---
Date/Time of Note Date/Time of Note DATE: 05/20/18 TIME: 09:25 Assessment/Plan VTE Prophylaxis Risk score (from Ns)>0 risk: 11 SCD applied (from Ns): Yes Pharmacological prophylaxis: heparin Lines/Catheters IV Catheter Type (from Nrsg): Saline Lock Urinary Cath still in place: Yes Reason Cath still needed: other (indicate) (diuresing) Assessment/Plan Assessment/Plan 83 yo woman with diastolic chronic CHF presented with acute respiratory failure 2/2 dCHF and pneumonia - s/p extubation 05/18 now stable on room air - Continues on IV lasix 40 BID - Abx for pneumonia, ID consulted - PT/OT - Transfer to med/surg today. Result Diagram: 05/19/18 0520 05/20/18 0503 Subjective 24 Hr Interval Summary Free Text/Dictation No acute overnight events. Patient diuresing well on IV lasix. Passed swallow eval today. Sleeping comfortably on room air. Exam/Review of Systems Exam Vitals Vital Signs Date Temp Pulse Resp B/P (MAP) Pulse Ox O2 O2 Flow FiO2 Time Delivery Rate 05/20/18 85 08:00 05/20/18 17 117/92 99 Nasal 3.0 06:00 (100) Cannula 05/20/18 97.8 04:00 05/18/18 40 20:05 Intake and Output 05/19/18 05/19/18 05/20/18 1515:00 23:00 07:00 IntakeIntake Total 450.00 ml 50 ml 0 ml OutputOutput Total 860 ml 640 ml BalanceBalance -410.00 ml -590 ml 0 ml Exam Constitutional: Elderly woman sleeping comfortably but arousable, breathing room air. Head: normocephalic, atraumatic Eyes: nl conjunctiva, nl lids, nl sclera ENMT: nl external ears & nose, nl lips & teeth, nl nasal mucosa & septum Neck: supple, non-tender Respiratory: clear to auscultation, normal air movement, no wheezes. Cardiovascular: regular rate and rhythm, nl pulses, no murmurs Gastrointestinal: soft, nl liver, spleen, non-tender Musculoskeletal: nl extremities to inspection Extremities: normal pulses Results Results 24hrs Laboratory Tests Test 05/20/18 00:45 05/20/18 05:03 05/20/18 07:00 B-Type Natriuretic Peptide 1020 H Sodium Level 147 H Potassium Level 3.8 Chloride Level 103 Carbon Dioxide Level 34 H Anion Gap 10 Blood Urea Nitrogen 32 H Creatinine 0.75 Est Glomerular Filtrat Rate mL/min Glucose Level 120 Calcium Level 9.3 Lactate Dehydrogenase 704 H Blood Gas Specimen Source Blood arterial Arterial Blood Date Drawn 05/20/2018 8:39:41 AM Arterial Blood pH 7.441 (Temp corrected) Arterial Blood pCO2 49.7 H (Temp correct) Arterial Blood pO2 63.9 L (Temp corrected) Arterial Blood HCO3 33.1 H Arterial Blood Base Excess 7.6 H Arterial Blood 91.6 L Oxygen Saturation Jason Test ACCEPTAB Arterial Blood Gas Left Radial Puncture Site Arterial 0.9 Blood Carboxyhemoglobin Arterial Blood Methemoglobin 0 Blood Gas A-a O2 26.3 H Differential Oxyhemoglobin Percent 90.8 L Blood Gas Temperature 37.0 Blood Gas Modality ROOM AIR FiO2 21.0 Blood Gas Notified Whom MDA Blood Gas Notified Time 05/20/2018 8:43:09 AM Medications Medication Current Medications Fentanyl (Sublimaze) 25 mcg Q2H PRN IV AGITATION Last administered on 05/16/18 20:46; Admin Dose 25 MCG; Start 05/16/18 at 20:30 Ondansetron HCl (Zofran Inj) 4 mg Q6H PRN IV NAUSEA AND/OR VOMITING Last administered on 05/17/18 11:41; Admin Dose 4 MG; Start 05/16/18 at 22:30 Albuterol (Ventolin Hfa) 4 puff Q2H RESP THERAPY PRN INH SHORTNESS OF BREATH; Start 05/16/18 at 22:30 Ipratropium [place] (Atrovent Hfa) 4 puff Q2H RESP THERAPY PRN INH SHORTNESS OF BREATH; Start 05/16/18 at 22:30 Acetaminophen (Tylenol Liquid) 650 mg Q6H PRN PO PAIN LEVEL 1-3 OR FEVER; Start 05/16/18 at 22:30 Famotidine (Pepcid Iv) 20 mg Q12 IV Last administered on 05/19/18 20:32; Admin Dose 20 MG; Start 05/17/18 at 09:00 Heparin Sodium (Porcine) (Heparin (5000 Units/1ml)) 5,000 unit Q12 SC Last administered on 05/19/18 20:36; Admin Dose 5,000 UNIT; Start 05/17/18 at 09:00 Propofol 100 ml @ 2.19 mls/hr PER PROTOCOL IV Last administered on 05/18/18 07:10; Admin Dose 8.76 MLS/HR; Start 05/16/18 at 22:30 Norepinephrine 250 ml @ 1.875 mls/ hr PER PROTOCOL IV ; Start 05/17/18 at 01:30 Ceftriaxone Sodium 50 ml @ 100 mls/hr Q12H IVPB Last administered on 05/20/18 06:07; Admin Dose 100 MLS/HR; Start 05/17/18 at 06:00 Fentanyl 100 ml @ 2.5 mls/hr TITRATE IV Last administered on 05/17/18 17:46; Admin Dose 5 MLS/HR; Start 05/17/18 at 07:00 Lorazepam (Ativan) 1 mg Q4H PRN IV AGITATION/ANXIETY Last administered on 05/18/18 13:06; Admin Dose 1 MG; Start 05/18/18 at 13:00 Furosemide (Lasix) 40 mg BID DIURETICS IV Last administered on 05/20/18 06:07; Admin Dose 40 MG; Start 05/18/18 at 18:00 Albuterol/ Ipratropium (Duoneb) 3 ml Q6H RESP THERAPY HHN Last administered on 05/20/18 01:26; Admin Dose 3 ML; Start 05/18/18 at 14:00 YOLANDA FERREIRA MD May 20, 2018 09:28
[2018-05-20] MEDS: FAMOTIDINE 20 MG INJ IV SCH ×2 (09:59→20:19)
[2018-05-20] MEDS: HEPARIN 5,000 UNIT/1 ML VIAL SC SCH ×2 (10:00→20:24)
--- NOTE | 2018-05-20 10:33 | CONS ---
Assessment/Plan Assessment/Plan Hospital Course (Demo Recall) ID PROGRESS NOTE CURRENT ABX: DAY # Ceftriaxone ===> NOTED: IV Steroids onboard s/p Vanco IV + Cefepime 05/16/18 05/19/18 0520 05/20/18 0503 24H INTERVAL SUMMARY * HPI REVIEWED: 83 yo woman with diastolic chronic CHF presented with acute respiratory failure 2/2 dCHF and pneumonia * - s/p extubation 05/18 now stable on 3L NC - NO fever today, VSS DIAGNOSTIC IMAGING * 05/20/18 CXR: IMPRESSION:Increased perihilar bronchovascular markings. Right basilar infiltrate with small effusions. Question failure versus pneumonia. No change. MICRO/OTHER * * 05/17/18 (-)MRSA * 05/16/18 BCx (-) * 05/16/18 INFLUENZA A & B BY EIA Final INFLU A&B BY EIA INFLUENZA A NEGATIVE (Ref Range Neg) INFLUENZA B NEGATIVE (Ref Range Neg) PHYSICAL EXAMINATION: GENERAL: VSS HEENT: AT, NC, anicteric NECK: Supple, CHEST: Equal chest rise bilaterally, without dyspnea on observation HEART: Pulse RRR ABDOMEN: Soft / NT EXTREMITIES: Warm, dry SKIN: No rash, no diaphoresis ID ASSESSMENT 83 yo F admit with: 1. SIRS vs early sepsis w/Tmax 99.6, HR 138, lactic acidosis and hypoxia on admission 2. Acute hypoxic respiratory failure == multifactorial due to below 3. Acute diastolic HF exacerbation w/elevated BNP and fluid overload state 4. Acute COPD asthmatic bronchitis exacerbation 5. Patchy bilateral pneumonia. Possibly interstitial lung disease = per prior pulmonary notes ABX ALLERGIES: KNDA INVASIVES: PIV CURRENT ABX: DAY # Ceftriaxone ID RECOMMENDATIONS/PLAN: 1. Continue current ABX 2. Await ID Attending, Dr. Rodriguez's recommendations pending dictation youth care professional post. . Consultation Date/Type/Reason Admit Date/Time May 16, 2018 at 21:35 Initial Consult Date 05/17/18 Date/Time of Note DATE: 05/20/18 TIME: 10:33 Exam/Review of Systems Exam Vitals Vital Signs Date Temp Pulse Resp B/P (MAP) Pulse Ox O2 O2 Flow FiO2 Time Delivery Rate 05/20/18 87 21 121/65 92 Nasal 3.0 09:00 (83) Cannula 05/20/18 96.7 08:00 05/18/18 40 20:05 Intake and Output 05/19/18 05/19/18 05/20/18 1515:00 23:00 07:00 IntakeIntake Total 450.00 ml 50 ml 0 ml OutputOutput Total 860 ml 640 ml BalanceBalance -410.00 ml -590 ml 0 ml Results Result Diagram: 05/19/18 0520 05/20/18 0503 Results 24hrs Laboratory Tests Test 05/20/18 00:45 05/20/18 05:03 05/20/18 07:00 B-Type Natriuretic Peptide 1020 H Sodium Level 147 H Potassium Level 3.8 Chloride Level 103 Carbon Dioxide Level 34 H Anion Gap 10 Blood Urea Nitrogen 32 H Creatinine 0.75 Est Glomerular Filtrat Rate mL/min Glucose Level 120 Calcium Level 9.3 Lactate Dehydrogenase 704 H Blood Gas Specimen Source Blood arterial Arterial Blood Date Drawn 05/20/2018 8:39:41 AM Arterial Blood pH 7.441 (Temp corrected) Arterial Blood pCO2 49.7 H (Temp correct) Arterial Blood pO2 63.9 L (Temp corrected) Arterial Blood HCO3 33.1 H Arterial Blood Base Excess 7.6 H Arterial Blood 91.6 L Oxygen Saturation Jason Test ACCEPTAB Arterial Blood Gas Left Radial Puncture Site Arterial 0.9 Blood Carboxyhemoglobin Arterial Blood Methemoglobin 0 Blood Gas A-a O2 26.3 H Differential Oxyhemoglobin Percent 90.8 L Blood Gas Temperature 37.0 Blood Gas Modality ROOM AIR FiO2 21.0 Blood Gas Notified Whom MDA Blood Gas Notified Time 05/20/2018 8:43:09 AM Medications Medication Current Medications Fentanyl (Sublimaze) 25 mcg Q2H PRN IV AGITATION Last administered on 05/16/18at 20:46; Admin Dose 25 MCG; Start 05/16/18 at 20:30 Ondansetron HCl (Zofran Inj) 4 mg Q6H PRN IV NAUSEA AND/OR VOMITING Last administered on 05/17/18at 11:41; Admin Dose 4 MG; Start 05/16/18 at 22:30 Albuterol (Ventolin Hfa) 4 puff Q2H RESP THERAPY PRN INH SHORTNESS OF BREATH; Start 05/16/18 at 22:30 Ipratropium [place] (Atrovent Hfa) 4 puff Q2H RESP THERAPY PRN INH SHORTNESS OF BREATH; Start 05/16/18 at 22:30 Acetaminophen (Tylenol Liquid) 650 mg Q6H PRN PO PAIN LEVEL 1-3 OR FEVER; Start 05/16/18 at 22:30 Famotidine (Pepcid Iv) 20 mg Q12 IV Last administered on 05/20/18 09:59; Admin Dose 20 MG; Start 05/17/18 at 09:00 Heparin Sodium (Porcine) (Heparin (5000 Units/1ml)) 5,000 unit Q12 SC Last administered on 05/20/18 10:00; Admin Dose 5,000 UNIT; Start 05/17/18 at 09:00 Ceftriaxone Sodium 50 ml @ 100 mls/hr Q12H IVPB Last administered on 05/20/18 06:07; Admin Dose 100 MLS/HR; Start 05/17/18 at 06:00 Lorazepam (Ativan) 1 mg Q4H PRN IV AGITATION/ANXIETY Last administered on 05/18/18at 13:06; Admin Dose 1 MG; Start 05/18/18 at 13:00 Furosemide (Lasix) 40 mg BID DIURETICS IV Last administered on 05/20/18 06 :07; Admin Dose 40 MG; Start 05/18/18 at 18:00 Albuterol/ Ipratropium (Duoneb) 3 ml Q6H RESP THERAPY HHN Last administered on 05/20/18 01:26; Admin Dose 3 ML; Start 05/18/18 at 14:00 ROMA FIGUEROA NP May 20, 2018 10:33
--- NOTE | 2018-05-20 10:49 | CONS ---
Consult Date/Type/Reason Admit Date/Time May 16, 2018 at 21:35 Initial Consult Date 05/17/18 Type of Consultation: Pulm/CCM Date/Time of Note DATE: 05/20/18 TIME: 10:46 Subjective Doing better. On NC. Awake and alert. No complaints. Objective Vitals Vital Signs Date Temp Pulse Resp B/P (MAP) Pulse Ox O2 O2 Flow FiO2 Time Delivery Rate 05/20/18 87 21 121/65 92 Nasal 3.0 09:00 (83) Cannula 05/20/18 96.7 08:00 05/18/18 40 20:05 Intake and Output 05/19/18 05/19/18 05/20/18 1515:00 23:00 07:00 IntakeIntake Total 450.00 ml 50 ml 0 ml OutputOutput Total 860 ml 640 ml BalanceBalance -410.00 ml -590 ml 0 ml Exam HEENT: Neck supple; no JVD; no LAD CVS: RRR, S1 and S2 CHEST: Distant; bibasilar rales ABD: Soft, NT, + BS EXT: + 2 LE edema Results/Medications Result Diagram: 05/19/18 0520 05/20/18 0503 Results 24 hrs Laboratory Tests Test 05/20/18 00:45 05/20/18 05:03 05/20/18 07:00 B-Type Natriuretic Peptide 1020 H Sodium Level 147 H Potassium Level 3.8 Chloride Level 103 Carbon Dioxide Level 34 H Anion Gap 10 Blood Urea Nitrogen 32 H Creatinine 0.75 Est Glomerular Filtrat Rate mL/min Glucose Level 120 Calcium Level 9.3 Lactate Dehydrogenase 704 H Blood Gas Specimen Source Blood arterial Arterial Blood Date Drawn 05/20/2018 8:39:41 AM Arterial Blood pH 7.441 (Temp corrected) Arterial Blood pCO2 49.7 H (Temp correct) Arterial Blood pO2 63.9 L (Temp corrected) Arterial Blood HCO3 33.1 H Arterial Blood Base Excess 7.6 H Arterial Blood 91.6 L Oxygen Saturation Jason Test ACCEPTAB Arterial Blood Gas Left Radial Puncture Site Arterial 0.9 Blood Carboxyhemoglobin Arterial Blood Methemoglobin 0 Blood Gas A-a O2 26.3 H Differential Oxyhemoglobin Percent 90.8 L Blood Gas Temperature 37.0 Blood Gas Modality ROOM AIR FiO2 21.0 Blood Gas Notified Whom MDA Blood Gas Notified Time 05/20/2018 8:43:09 AM Medications Current Medications Fentanyl (Sublimaze) 25 mcg Q2H PRN IV AGITATION Last administered on 05/16/18 20:46; Admin Dose 25 MCG; Start 05/16/18 at 20:30 Ondansetron HCl (Zofran Inj) 4 mg Q6H PRN IV NAUSEA AND/OR VOMITING Last administered on 05/17/18 11:41; Admin Dose 4 MG; Start 05/16/18 at 22:30 Albuterol (Ventolin Hfa) 4 puff Q2H RESP THERAPY PRN INH SHORTNESS OF BREATH; Start 05/16/18 at 22:30 Ipratropium [place] (Atrovent Hfa) 4 puff Q2H RESP THERAPY PRN INH SHORTNESS OF BREATH; Start 05/16/18 at 22:30 Acetaminophen (Tylenol Liquid) 650 mg Q6H PRN PO PAIN LEVEL 1-3 OR FEVER; Start 05/16/18 at 22:30 Famotidine (Pepcid Iv) 20 mg Q12 IV Last administered on 05/20/18 09:59; Admin Dose 20 MG; Start 05/17/18 at 09:00 Heparin Sodium (Porcine) (Heparin (5000 Units/1ml)) 5,000 unit Q12 SC Last administered on 05/20/18 10:00; Admin Dose 5,000 UNIT; Start 05/17/18 at 09:00 Ceftriaxone Sodium 50 ml @ 100 mls/hr Q12H IVPB Last administered on 05/20/18 06:07; Admin Dose 100 MLS/HR; Start 05/17/18 at 06:00 Lorazepam (Ativan) 1 mg Q4H PRN IV AGITATION/ANXIETY Last administered on 05/18/18 13:06; Admin Dose 1 MG; Start 05/18/18 at 13:00 Furosemide (Lasix) 40 mg BID DIURETICS IV Last administered on 05/20/18 06:07; Admin Dose 40 MG; Start 05/18/18 at 18:00 Albuterol/ Ipratropium (Duoneb) 3 ml Q6H RESP THERAPY HHN Last administered on 05/20/18 01:26; Admin Dose 3 ML; Start 05/18/18 at 14:00 Assessment/Plan Assessment/Plan (Daily) IMP: 1. Acute hypoxemic respiratory failure secondary to congestive cardiac failure 2. Chronic Hypercapnic resp insufficiency--likely 2/2 scoliosis 3. s/p shock 4. Anemia RECS: 1. Minimize FiO2 to keep SpO2 88-92% 2. Mobilize OOB--> PT/OT eval 3. ST eval 4. BDs 5. VTE prophylaxis 6. Diuresis Patient stable to transfer to telemetry Critical care time 40 minutes CHERELLE DILLON MD May 20, 2018 10:49
[2018-05-21] MEDS: ALBUTEROL/IPRATROPIUM (NEB) 3 ML AMP HHN SCH ×4 (01:09→20:00)
[2018-05-21 02:00] VITALS: BP 131/62; PULSE 99; RESP 16
[2018-05-21 05:52] VITALS: BP 151/82; PULSE 100; RESP 16
[2018-05-21] MEDS: FUROSEMIDE 40 MG INJ IV SCH ×2 (05:54→17:41)
[2018-05-21] MEDS: CEFTRIAXONE 1 GM/50 ML (PMX) 50 ML IVPB SCH ×2 (05:55→17:41)
[2018-05-21 08:51] VITALS: BP 147/70; PULSE 107; RESP 20
--- NOTE | 2018-05-21 09:09 | RADRPT ---
Echocardiogram Report Patient Name: MELODIE FREEMANatient ID: [id number] : 1935 (83y 2m)Study Date: 05/20/2018 9:30:40 AM Gender: FAccession #: [id number] Tech: Shakira Uribe RDCS Location: [address] Ref[address]Physician: Audi SOTOMAYOR Height(Cm): BSA: Weight(Kg): Quality: AdequateOrder Physician: MARILEE SOTOMAYOR Account #: Procedures: Echocardiographic Report: Transthoracic echocardiogram with complete 2D, M-Mode, and doppler examination. Indications: Congestive Heart Failure. Measurements: 2D/M Mode Doppler Measurement Value Normal Range Measurement Value Normal Range LVIDd 2D 3.1 [ 3.8 - 5.2 ] cm AV Peak Jerry 1.3 [ 100.0 - 170.0 ] cm/se c LVIDs 2D 2.0 [ 2.2 - 3.5 ] cm AV Peak PG 6.0 [ 2.0 - 9.0 ] mmHg LVPWd 2D 1.0 [ 0.6 - 0.9 ] cm AI Peak PG 75.0 mmHg IVSd 2D 1.0 [ 0.6 - 0.9 ] cm AI Peak Jerry 4.3 cm/sec AoR Diam 2D 2.4 [ 2.3 - 3.1 ] cm AI PHT 535.0 msec EDV 2D 37.0 [ 46.0 - 106.0 ] ml LVOT Peak Jerry 0.7 [ 70.0 - 110.0 ] cm/sec ESV 2D 12.6 [ 14.0 - 42.0 ] ml LVOT Peak PG 2.0 [ 2.0 - 6.0 ] mmHg EF 2D 65.9 [ 54.0 - 74.0 ] percent MV E Peak Jerry 0.9 [ 60.0 - 130.0 ] cm/sec LA Dimen 2D 2.5 [ 2.7 - 3.8 ] cm MV A Peak Jerry 0.3 [ 100.0 - 120.0 ] cm/se c MV E/A 3.0 [ 0.8 - 1.5 ] ratio MV PHT 38.0 [ 20.0 - 100.0 ] msec MV Decel Time 130 [ 104 - 258 ] msec MV Decel [place] 7 Lat E` Jerry 0.1 [ 10.0 - 15.0 ] cm/sec Lateral E/E` 12.5 [ 1.0 - 2.0 ] ratio Med E` Jerry 0.0 cm/sec MV E/A 3.0 [ 0.8 - 1.5 ] ratio MVA PHT 5.8 [ 2.0 - 4.0 ] cm2 Findings: Left Ventricle: Normal left ventricular systolic function. Normal left ventricular cavity size. Mild concentric left ventricular hypertrophy. Ejection fraction is visually estimated at 55-60 %. Right Ventricle: Normal right ventricular size. Normal right ventricular systolic function. Left Atrium: The left atrium is normal in size. Right Atrium: The right atrium is normal in size. Atrial Septum: Normal atrial septum. Ventricular septum: Normal/intact ventricular septum. Mitral Valve: Normal appearance of the mitral valve. No mitral valve regurgitation is seen. Aortic Valve: Normal appearance of the aortic valve. Mild aortic valve regurgitation. PHT estimated 535 ms. Tricuspid Valve: Unable to obtain RVSP due to minimal presence of tricuspid regurgitation. Pulmonic Valve: Normal pulmonic valve appearance. No evidence of pulmonic regurgitation. Pericardium: Normal pericardium with no significant pericardial effusion. Aorta: Normal aortic root. IVC: The IVC is not well visualized. Conclusions: Normal left ventricular systolic function. Normal left ventricular cavity size. Mild concentric left ventricular hypertrophy. Ejection fraction is visually estimated at 55-60 %. Normal appearance of the aortic valve. Mild aortic valve regurgitation. PHT estimated 535 ms. Electronically Signed By: Yosef Roberson 2018-05-21 09:08:22 PDT
[2018-05-21] MEDS ORDERED: HALOPERIDOL 5 MG INJ IV PRN (09:30)
[2018-05-21] MEDS: FAMOTIDINE 20 MG INJ IV SCH ×2 (11:33→21:01)
[2018-05-21] MEDS: HEPARIN 5,000 UNIT/1 ML VIAL SC SCH ×2 (11:34→21:01)
--- NOTE | 2018-05-21 14:24 | CONS ---
Assessment/Plan Assessment/Plan Hospital Course (Demo Recall) ID PROGRESS NOTE CURRENT ABX: DAY # Ceftriaxone ===> NOTED: IV Steroids onboard s/p Vanco IV + Cefepime 05/16/18 05/21/18 0510 05/21/18 0510 24H INTERVAL SUMMARY * Awake, alert, responsive, much improved -- OFF SUPPLEMENTAL O2 without dyspnea, no wheezing, eating lunch with family present * - s/p extubation 05/18-- NO fever today, VSS DIAGNOSTIC IMAGING * 05/20/18 CXR: IMPRESSION:Increased perihilar bronchovascular markings. Right basilar infiltrate with small effusions. Question failure versus pneumonia. No change. MICRO/OTHER * * 05/17/18 (-)MRSA * 05/16/18 BCx (-) * 05/16/18 INFLUENZA A & B BY EIA Final INFLU A&B BY EIA INFLUENZA A NEGATIVE (Ref Range Neg) INFLUENZA B NEGATIVE (Ref Range Neg) PHYSICAL EXAMINATION: GENERAL: VSS HEENT: AT, NC, anicteric NECK: Supple, CHEST: Equal chest rise bilaterally, without dyspnea on observation HEART: Pulse RRR ABDOMEN: Soft / NT EXTREMITIES: Warm, dry SKIN: No rash, no diaphoresis ID ASSESSMENT 83 yo F admit with: 1. SIRS vs early sepsis w/Tmax 99.6, HR 138, lactic acidosis and hypoxia on admission 2. Acute hypoxic respiratory failure == multifactorial due to below 3. Acute diastolic HF exacerbation w/elevated BNP and fluid overload state 4. Acute COPD asthmatic bronchitis exacerbation 5. Patchy bilateral pneumonia. Possibly interstitial lung disease = per prior pulmonary notes ABX ALLERGIES: KNDA INVASIVES: PIV CURRENT ABX: DAY # Ceftriaxone ID RECOMMENDATIONS/PLAN: 1. Continue current ABX - anticipate DC ABX soon vs taper to PO 2. Await ID Attending, Dr. Rodriguez's recommendations pending dictation technical project manager post. . Consultation Date/Type/Reason Admit Date/Time May 16, 2018 at 21:35 Initial Consult Date 05/17/18 Date/Time of Note DATE: 05/21/18 TIME: 14:22 Exam/Review of Systems Exam Vitals Vital Signs Date Temp Pulse Resp B/P (MAP) Pulse Ox O2 O2 Flow FiO2 Time Delivery Rate 05/21/18 89 20 96 Nasal 2.0 14:17 Cannula 05/21/18 97.9 147/70 08:51 (95) 05/18/18 40 20:05 Intake and Output 05/20/18 05/20/18 05/21/18 1515:00 23:00 07:00 IntakeIntake Total 240 ml 450 ml 350 ml OutputOutput Total 195 ml 800 ml 750 ml BalanceBalance 45 ml -350 ml -400 ml Results Result Diagram: 05/21/18 0510 05/21/18 0510 Results 24hrs Laboratory Tests Test 05/21/18 05:10 White Blood Count 6.8 # Red Blood Count 4.90 Hemoglobin 12.2 Hematocrit 39.7 Mean Corpuscular Volume 81.0 L Mean Corpuscular Hemoglobin 24.9 L Mean Corpuscular Hemoglobin Concent 30.7 L Red Cell Distribution Width 15.5 H Platelet Count 270 Mean Platelet Volume 10.3 Immature Granulocytes % 0.300 Neutrophils % 61.1 Lymphocytes % 22.4 Monocytes % 12.9 H Eosinophils % 2.9 Basophils % 0.4 Nucleated Red Blood Cells % 0.0 Immature Granulocytes # 0.020 Neutrophils # 4.2 Lymphocytes # 1.5 Monocytes # 0.9 Eosinophils # 0.2 Basophils # 0.0 Nucleated Red Blood Cells # 0.0 Sodium Level 142 Potassium Level 3.3 L Chloride Level 99 Carbon Dioxide Level 30 Anion Gap 13 Blood Urea Nitrogen 38 H Creatinine 0.78 Est Glomerular Filtrat Rate mL/min Glucose Level 115 Calcium Level 9.7 Phosphorus Level 3.9 Magnesium Level 2.3 Total Bilirubin 0.7 Direct Bilirubin 0.00 Indirect Bilirubin 0.7 Aspartate Amino Transf (AST/SGOT) 50 H Alanine Aminotransferase (ALT/SGPT) 58 Alkaline Phosphatase 98 Total Protein 7.7 Albumin 4.2 Globulin 3.50 H Albumin/Globulin Ratio 1.20 Medications Medication Current Medications Fentanyl (Sublimaze) 25 mcg Q2H PRN IV AGITATION Last administered on 05/16/18at 20:46; Admin Dose 25 MCG; Start 05/16/18 at 20:30 Ondansetron HCl (Zofran Inj) 4 mg Q6H PRN IV NAUSEA AND/OR VOMITING Last administered on 05/17/18at 11:41; Admin Dose 4 MG; Start 05/16/18 at 22:30 Albuterol (Ventolin Hfa) 4 puff Q2H RESP THERAPY PRN INH SHORTNESS OF BREATH; Start 05/16/18 at 22:30 Ipratropium [place] (Atrovent Hfa) 4 puff Q2H RESP THERAPY PRN INH SHORTNESS OF BREATH; Start 05/16/18 at 22:30 Acetaminophen (Tylenol Liquid) 650 mg Q6H PRN PO PAIN LEVEL 1-3 OR FEVER; Start 05/16/18 at 22:30 Famotidine (Pepcid Iv) 20 mg Q12 IV Last administered on 05/21/18at 11:33; Admin Dose 20 MG; Start 05/17/18 at 09:00 Heparin Sodium (Porcine) (Heparin (5000 Units/1ml)) 5,000 unit Q12 SC Last administered on 05/21/18at 11:34; Admin Dose 5,000 UNIT; Start 05/17/18 at 09:00 Ceftriaxone Sodium 50 ml @ 100 mls/hr Q12H IVPB Last administered on 05/21/18 05:55; Admin Dose 100 MLS/HR; Start 05/17/18 at 06:00 Furosemide (Lasix) 40 mg BID DIURETICS IV Last administered on 05/21/18 05:54; Admin Dose 40 MG; Start 05/18/18 at 18:00 Albuterol/ Ipratropium (Duoneb) 3 ml Q6H RESP THERAPY HHN Last administered on 05/21/18at 14:16; Admin Dose 3 ML; Start 05/18/18 at 14:00 Haloperidol (Haldol) 1 mg Q6H PRN IV agitation; Start 05/21/18 at 09:30 ROMA FIGUEROA NP May 21, 2018 14:24
[2018-05-21 14:32] VITALS: BP 128/64; PULSE 115; RESP 18
--- NOTE | 2018-05-21 14:50 | CONS ---
Consult Date/Type/Reason Admit Date/Time May 16, 2018 at 21:35 Initial Consult Date 05/17/18 Type of Consultation: Pulm/CCM Date/Time of Note DATE: 05/21/18 TIME: 14:49 Subjective No events overnight. Objective Vitals Vital Signs Date Temp Pulse Resp B/P (MAP) Pulse Ox O2 O2 Flow FiO2 Time Delivery Rate 05/21/18 98.1 115 18 128/64 92 Room Air 14:32 (85) 05/21/18 2.0 14:17 05/18/18 40 20:05 Intake and Output 05/20/18 05/20/18 05/21/18 1515:00 23:00 07:00 IntakeIntake Total 240 ml 450 ml 350 ml OutputOutput Total 195 ml 800 ml 750 ml BalanceBalance 45 ml -350 ml -400 ml Exam HEENT: Neck supple; no JVD; no LAD CVS: RRR, S1 and S2 CHEST: Distant; bibasilar rales ABD: Soft, NT, + BS EXT: + LE edema Results/Medications Result Diagram: 05/21/18 0510 05/21/18 0510 Results 24 hrs Laboratory Tests Test 05/21/18 05:10 White Blood Count 6.8 # Red Blood Count 4.90 Hemoglobin 12.2 Hematocrit 39.7 Mean Corpuscular Volume 81.0 L Mean Corpuscular Hemoglobin 24.9 L Mean Corpuscular Hemoglobin Concent 30.7 L Red Cell Distribution Width 15.5 H Platelet Count 270 Mean Platelet Volume 10.3 Immature Granulocytes % 0.300 Neutrophils % 61.1 Lymphocytes % 22.4 Monocytes % 12.9 H Eosinophils % 2.9 Basophils % 0.4 Nucleated Red Blood Cells % 0.0 Immature Granulocytes # 0.020 Neutrophils # 4.2 Lymphocytes # 1.5 Monocytes # 0.9 Eosinophils # 0.2 Basophils # 0.0 Nucleated Red Blood Cells # 0.0 Sodium Level 142 Potassium Level 3.3 L Chloride Level 99 Carbon Dioxide Level 30 Anion Gap 13 Blood Urea Nitrogen 38 H Creatinine 0.78 Est Glomerular Filtrat Rate mL/min Glucose Level 115 Calcium Level 9.7 Phosphorus Level 3.9 Magnesium Level 2.3 Total Bilirubin 0.7 Direct Bilirubin 0.00 Indirect Bilirubin 0.7 Aspartate Amino Transf (AST/SGOT) 50 H Alanine Aminotransferase (ALT/SGPT) 58 Alkaline Phosphatase 98 Total Protein 7.7 Albumin 4.2 Globulin 3.50 H Albumin/Globulin Ratio 1.20 Medications Current Medications Fentanyl (Sublimaze) 25 mcg Q2H PRN IV AGITATION Last administered on 05/16/18 20:46; Admin Dose 25 MCG; Start 05/16/18 at 20:30 Ondansetron HCl (Zofran Inj) 4 mg Q6H PRN IV NAUSEA AND/OR VOMITING Last administered on 05/17/18 11:41; Admin Dose 4 MG; Start 05/16/18 at 22:30 Albuterol (Ventolin Hfa) 4 puff Q2H RESP THERAPY PRN INH SHORTNESS OF BREATH; Start 05/16/18 at 22:30 Ipratropium [place] (Atrovent Hfa) 4 puff Q2H RESP THERAPY PRN INH SHORTNESS OF BREATH; Start 05/16/18 at 22:30 Acetaminophen (Tylenol Liquid) 650 mg Q6H PRN PO PAIN LEVEL 1-3 OR FEVER; Start 05/16/18 at 22:30 Famotidine (Pepcid Iv) 20 mg Q12 IV Last administered on 05/21/18 11:33; Admin Dose 20 MG; Start 05/17/18 at 09:00 Heparin Sodium (Porcine) (Heparin (5000 Units/1ml)) 5,000 unit Q12 SC Last administered on 05/21/18 11:34; Admin Dose 5,000 UNIT; Start 05/17/18 at 09:00 Ceftriaxone Sodium 50 ml @ 100 mls/hr Q12H IVPB Last administered on 05/21/18 05:55; Admin Dose 100 MLS/HR; Start 05/17/18 at 06:00 Furosemide (Lasix) 40 mg BID DIURETICS IV Last administered on 05/21/18 05:54; Admin Dose 40 MG; Start 05/18/18 at 18:00 Albuterol/ Ipratropium (Duoneb) 3 ml Q6H RESP THERAPY HHN Last administered on 05/21/18 14:16; Admin Dose 3 ML; Start 05/18/18 at 14:00 Haloperidol (Haldol) 1 mg Q6H PRN IV agitation; Start 05/21/18 at 09:30 Assessment/Plan Assessment/Plan (Daily) IMP: 1. s/p Acute hypoxemic respiratory failure secondary to congestive cardiac failure 2. Chronic Hypercapnic resp insufficiency--likely 2/2 scoliosis 3. s/p shock 4. Anemia RECS: 1. Minimize FiO2 to keep SpO2 88-92% 2. Mobilize OOB--> PT/OT eval 3. ST eval 4. BDs 5. VTE prophylaxis 6. Diuresis 7 Replete CHERELLE Burch MD May 21, 2018 14:50
--- NOTE | 2018-05-21 16:16 | PN ---
Date/Time of Note Date/Time of Note DATE: 05/21/18 TIME: 16:14 Assessment/Plan VTE Prophylaxis Risk score (from Ns)>0 risk: 6 SCD applied (from Nsg): Yes Pharmacological prophylaxis: NA/contraindicated Pharm contraindication: low risk/ambulating Lines/Catheters IV Catheter Type (from Nrsg): Saline Lock Urinary Cath still in place: Yes Reason Cath still needed: urinary retention Assessment/Plan Assessment/Plan 83 yo woman with diastolic chronic CHF presented with acute respiratory failure 2/2 dCHF and pneumonia - s/p extubation 05/18 now stable on room air - Continues on IV lasix 40 BID - Abx for pneumonia, ID consulted - PT/OT Dispo: Son does not want her to go to SNF. Will get PT/OT eval to ensure readiness to discharge home. Result Diagram: 05/21/18 0510 05/21/18 0510 Subjective 24 Hr Interval Summary Free Text/Dictation No acute overnight events. Patient breathing comfortably on room air. Son at bedside, I updated him on the plan. Exam/Review of Systems Exam Vitals Vital Signs Date Temp Pulse Resp B/P (MAP) Pulse Ox O2 O2 Flow FiO2 Time Delivery Rate 05/21/18 98.1 115 18 128/64 92 Room Air 14:32 (85) 05/21/18 2.0 14:17 05/18/18 40 20:05 Intake and Output 05/20/18 05/20/18 05/21/18 1515:00 23:00 07:00 IntakeIntake Total 240 ml 450 ml 350 ml OutputOutput Total 195 ml 800 ml 750 ml BalanceBalance 45 ml -350 ml -400 ml Exam Constitutional: Elderly woman awake lying in bed, breathing room air. Head: normocephalic, atraumatic Eyes: nl conjunctiva, nl lids, nl sclera ENMT: nl external ears & nose, nl lips & teeth, nl nasal mucosa & septum Neck: supple, non-tender Respiratory: clear to auscultation, but crackles at bases Cardiovascular: regular rate and rhythm, nl pulses, no murmurs Gastrointestinal: soft, nl liver, spleen, non-tender Musculoskeletal: nl extremities to inspection Extremities: normal pulses Results Results 24hrs Laboratory Tests Test 05/21/18 05:10 White Blood Count 6.8 # Red Blood Count 4.90 Hemoglobin 12.2 Hematocrit 39.7 Mean Corpuscular Volume 81.0 L Mean Corpuscular Hemoglobin 24.9 L Mean Corpuscular Hemoglobin Concent 30.7 L Red Cell Distribution Width 15.5 H Platelet Count 270 Mean Platelet Volume 10.3 Immature Granulocytes % 0.300 Neutrophils % 61.1 Lymphocytes % 22.4 Monocytes % 12.9 H Eosinophils % 2.9 Basophils % 0.4 Nucleated Red Blood Cells % 0.0 Immature Granulocytes # 0.020 Neutrophils # 4.2 Lymphocytes # 1.5 Monocytes # 0.9 Eosinophils # 0.2 Basophils # 0.0 Nucleated Red Blood Cells # 0.0 Sodium Level 142 Potassium Level 3.3 L Chloride Level 99 Carbon Dioxide Level 30 Anion Gap 13 Blood Urea Nitrogen 38 H Creatinine 0.78 Est Glomerular Filtrat Rate mL/min Glucose Level 115 Calcium Level 9.7 Phosphorus Level 3.9 Magnesium Level 2.3 Total Bilirubin 0.7 Direct Bilirubin 0.00 Indirect Bilirubin 0.7 Aspartate Amino Transf (AST/SGOT) 50 H Alanine Aminotransferase (ALT/SGPT) 58 Alkaline Phosphatase 98 Total Protein 7.7 Albumin 4.2 Globulin 3.50 H Albumin/Globulin Ratio 1.20 Medications Medication Current Medications Fentanyl (Sublimaze) 25 mcg Q2H PRN IV AGITATION Last administered on 05/16/18at 20:46; Admin Dose 25 MCG; Start 05/16/18 at 20:30 Ondansetron HCl (Zofran Inj) 4 mg Q6H PRN IV NAUSEA AND/OR VOMITING Last administered on 05/17/18at 11:41; Admin Dose 4 MG; Start 05/16/18 at 22:30 Albuterol (Ventolin Hfa) 4 puff Q2H RESP THERAPY PRN INH SHORTNESS OF BREATH; Start 05/16/18 at 22:30 Ipratropium [place] (Atrovent Hfa) 4 puff Q2H RESP THERAPY PRN INH SHORTNESS OF BREATH; Start 05/16/18 at 22:30 Acetaminophen (Tylenol Liquid) 650 mg Q6H PRN PO PAIN LEVEL 1-3 OR FEVER; St art 05/16/18 at 22:30 Famotidine (Pepcid Iv) 20 mg Q12 IV Last administered on 05/21/18at 11:33; Admin Dose 20 MG; Start 05/17/18 at 09:00 Heparin Sodium (Porcine) (Heparin (5000 Units/1ml)) 5,000 unit Q12 SC Last administered on 05/21/18at 11:34; Admin Dose 5,000 UNIT; Start 05/17/18 at 09:00 Ceftriaxone Sodium 50 ml @ 100 mls/hr Q12H IVPB Last administered on 05/21/18 05:55; Admin Dose 100 MLS/HR; Start 05/17/18 at 06:00 Furosemide (Lasix) 40 mg BID DIURETICS IV Last administered on 05/21/18at 05:54; Admin Dose 40 MG; Start 05/18/18 at 18:00 Albuterol/ Ipratropium (Duoneb) 3 ml Q6H RESP THERAPY HHN Last administered on 05/21/18at 14:16; Admin Dose 3 ML; Start 05/18/18 at 14:00 Haloperidol (Haldol) 1 mg Q6H PRN IV agitation; Start 05/21/18 at 09:30 YOLANDA FERREIRA MD May 21, 2018 16:16
[2018-05-21 20:43] VITALS: BP 140/73; PULSE 105; RESP 18
[2018-05-22] MEDS ORDERED: HALOPERIDOL 5 MG INJ IM ONE (00:30)
[2018-05-22] MEDS: ALBUTEROL/IPRATROPIUM (NEB) 3 ML AMP HHN SCH ×2 (02:00→08:16)
[2018-05-22 02:28] VITALS: BP 129/65; PULSE 80; RESP 18
[2018-05-22] MEDS: CEFTRIAXONE 1 GM/50 ML (PMX) 50 ML IVPB SCH (05:42)
[2018-05-22] MEDS: FUROSEMIDE 40 MG INJ IV SCH (05:50)
[2018-05-22] MEDS ORDERED: ETOMIDATE 20 MG INJ ONE (07:00)
[2018-05-22 08:17] VITALS: BP 128/66; PULSE 106; RESP 18
[2018-05-22] MEDS: FAMOTIDINE 20 MG INJ IV SCH (09:02)
[2018-05-22] MEDS: HEPARIN 5,000 UNIT/1 ML VIAL SC SCH (09:03)
--- NOTE | 2018-05-22 09:07 | CONS ---
DATE OF ADMISSION: 05/16/2018 DATE OF CONSULTATION: TYPE OF CONSULTATION: Infectious disease consultation for Dr. Benito Farfan. REQUESTING PHYSICIAN: Eliezer Morris MD HISTORY OF PRESENT ILLNESS: The patient is an 83-year-old [place] female who was admitted on 2018 through the emergency room with a chief complaint of a 3-day history of worsening shortness of b reath, asthma and labored breathing. On arrival, her temperature was 98.6, pulse 109, respirations 1 8, blood pressure 97/75 and O2 saturation is 100%. Her blood pressure later failed to 71/54. She wa s treated with supplemental oxygen, pressors, and temporarily had to be intubated. At the time of ad mission her white blood cell count was 7100, hemoglobin 13.8 grams with 65 polys, 14 lymphs, 7 monocy lizz and 2 eosinophils. BUN was 14. Later, on 05/18/2018, her BUN was 31 and her creatinine was 1.06 . Lactic acid on the day of admission was 7.9 and one day later 2.8. The chest x-ray was equivocal showing increased interstitial changes throughout both lungs with low lung volumes, slightly more foc al right upper lobe infiltrate initially. A second x-ray revealed, after some intravenous fluids, th ere were scattered interstitial lung changes with peribronchiolar cuffing, which could represent an a typical or viral process versus fluid overload. X-ray on the following day revealed increased diffus e bilateral alveolar infiltrates concerning for pneumonia and small bilateral pleural effusions are i ncreased. The patient was treated with initially cefepime and vancomycin and then changed to Zithrom ax and ceftriaxone. Cultures have been essentially negative. The patient's white count fell from 10 ,500 on 05/18 to 8600 with 80 polys, 11 lymphs and 10 monocytes. Influenza test was negative. The p atvicente was admitted to the intensive care unit. She had been extubated, if she was intubated initial ly? The patient apparently is stable in normal sinus rhythm. She cannot speak Amharic, but on exami [facility], she was noted to be sleeping with the head of bed elevated 45 degrees and her oxygen cannula askew of her nostrils bilaterally. PHYSICAL EXAMINATION GENERAL: Reveals an obese, pleasant, cooperative [place] lady with short hair. VITAL SIGNS: Blood pressure is 140/70, pulse is 131, respirations 22 and her oximetry was 94 on BiPA P. FIO2 originally was 50%. NECK: There was no jugular venous distention. CHEST: Clear to auscultation. HEART: Had distant tones, but no murmur was heard, although a murmur of aortic stenosis was sought f or but not found, or pulsus parvus et tardus. ABDOMEN: Soft and obese. No palpable organs, mass or tenderness. EXTREMITIES: Reveal lower extremity adiposity, but no edema. NEUROLOGIC: Examination appeared to be grossly intact, although orientation could not be tested wilber use of the language barrier, but patient could understand to cooperate minimally. INITIAL IMPRESSION: 1. Acute respiratory failure. 2. Acute exacerbation of chronic obstructive pulmonary disease. 3. Lactic acidosis. 4. Hypertension. 5. Congestive heart failure. 6. Asthma. 7. Acute renal injury. RECOMMENDATIONS: Continue ceftriaxone as the patient appears to be responding. I would discontinue Zithromax. I would recommend obtaining, because of the acute heart failure, an echocardiogram, BNP a nd LDH. Thank you for referring this interesting patient. Dictated By: Audi SOTOMAYOR MD for ARTURO RYDER MD EC/NTS Conf#: [id number] DID#: [id number] CC: ELIEZER MORRIS MD;*[facility]*
--- NOTE | 2018-05-22 12:16 | PDOCDIS ---
Discharge Instructions DIAGNOSIS Discharge Diagnosis Acute diastolic CHF exacerbation CONDITION [id number] Patient Condition: [id number] Stable FOLLOW UP/APPOINTMENTS Follow-up Plan Start taking lasix 20 mg daily as prescribed Continue your other medications as prescribed by your primary doctor See your doctor within the next 1-2 weeks for further care MARIANO WRIGHT MD May 22, 2018 12:16
--- NOTE | 2018-05-22 12:28 | DS ---
Date/Time of Note Date/Time of Note DATE: 05/22/18 TIME: 12:26 Discharge Summary Admission/Discharge Info Admit Date/Time May 16, 2018 at 21:35 Discharge Date/Time Discharge Diagnosis Acute diastolic CHF exacerbation Patient Condition: Stable Hospital Course 83 yo female with diastolic chronic CHF who presented with acute respiratory failure. She was emergently intubated. XR showed pulmonary edema as well as pneumonia. She was treated wtih diuretics and antitibiotcs. She was able to be extubated the following day. TTE showed normal systolic function, likely disastolic dysfucntion. Diuresis was continued to euvolemia and she completed a course of antibiotics. Subacute rehab was offered, but her family requested to take her home instead. She was prescribed lasix 20 mg PO at discharge. Her home meds were otherwise unknown. She was encouraged to follow up in the next few days with her primary doctor for medication reconcilation. Follow-up Plan Start taking lasix 20 mg daily as prescribed Continue your other medications as prescribed by your primary doctor See your doctor within the next 1-2 weeks for further care Primary Care Provider Not On Staff Doctor Pending Labs Laboratory Tests Test 05/22/18 05:54 05/22/18 05:55 Sodium Level 144 mmol/L (135-144) Potassium Level 3.2 mmol/L (3.5-5.1) Chloride Level 95 mmol/L (97-110) Carbon Dioxide Level 34 mmol/L (21-31) Anion Gap 15 (5-13) Blood Urea Nitrogen 40 mg/dl (7-20) Creatinine 0.83 mg/dl (0.44-1.00) Est Glomerular Filtrat mL/min (>60) Rate mL/min Glucose Level 127 mg/dl (70-220) Calcium Level 9.5 mg/dl (8.4-10.2) Phosphorus Level 4.2 mg/dl (2.5-4.9) Magnesium Level 2.3 mg/dl (1.7-2.5) White Blood Count 6.9 10^3/ul (4.8-10.8) Red Blood Count 5.28 10^6/ul (4.20-5.40) Hemoglobin 13.1 g/dl (12.0-16.0) Hematocrit 42.8 % (37.0-47.0) Mean Corpuscular Volume 81.1 fl (82.0-101.0) Mean Corpuscular Hemoglobin 24.8 pg (29.0-33.0) Mean Corpuscular 30.6 g/dl (32.0-37.0) Hemoglobin Concent Red Cell Distribution Width 15.6 % (11.5-14.5) Platelet Count 309 10^3/UL (140-415) Mean Platelet Volume 10.5 fl (7.4-10.4) Immature Granulocytes % 0.400 % (0.001-0.429) Neutrophils % 60.3 % (39.0-77.0) Lymphocytes % 21.8 % (15.0-51.0) Monocytes % 14.2 % (0.0-11.0) Eosinophils % 2.9 % (0.0-7.0) Basophils % 0.4 % (0.0-2.0) Nucleated Red Blood Cells % 0.0 /100WBC (0.0-0.0) Immature Granulocytes # 0.030 10^3/ul (0.0-0.031) Neutrophils # 4.2 10^3/ul (1.6-7.5) Lymphocytes # 1.5 10^3/ul (0.8-2.9) Monocytes # 1.0 10^3/ul (0.3-0.9) Eosinophils # 0.2 10^3/ul (0.0-0.5) Basophils # 0.0 10^3/ul (0.0-0.1) Nucleated Red Blood Cells # 0.0 10^3/ul (0.0-0.0) MRAIANO WRIGHT MD May 22, 2018 12:28
--- NOTE | 2018-05-22 13:15 | CONS ---
Assessment/Plan Assessment/Plan Hospital Course (Demo Recall) Patient is alert in no distress no fevers overnight WBC 6.9 no shift no bands BNP 40 creatinine 0.83 Physical examination: Well-developed fragile elderly woman in no distress. Head atraumatic normocephalic neck is supple chest rise symmetrical breath sounds diminished at bases heart S1-S2 abdomen soft bowel sounds present extremities without cyanosis Assessment: 1. Status post acute respiratory failure secondary to COPD exacerbation 2. CHF 3. Asthma 4. Hypertension Plan: Patient completed antibiotic course currently stable, pending discharge Consultation Date/Type/Reason Admit Date/Time May 16, 2018 at 21:35 Initial Consult Date 05/17/18 Type of Consult id Date/Time of Note DATE: 05/22/18 TIME: 13:14 Exam/Review of Systems Exam Vitals Vital Signs Date Temp Pulse Resp B/P (MAP) Pulse Ox O2 O2 Flow FiO2 Time Delivery Rate 05/22/18 Nasal 3.0 09:32 Cannula 05/22/18 90 20 96 08:25 05/22/18 98.7 128/66 08:17 (86) 05/18/18 40 20:05 Intake and Output 05/21/18 05/21/18 05/22/18 1515:00 23:00 07:00 IntakeIntake Total 370 ml 450 ml 290 ml OutputOutput Total 750 ml 300 ml BalanceBalance 370 ml -300 ml -10 ml Results Result Diagram: 05/22/18 0555 05/22/18 0554 Results 24hrs Laboratory Tests Test 05/22/18 05:54 05/22/18 05:55 Sodium Level 144 Potassium Level 3.2 L Chloride Level 95 L Carbon Dioxide Level 34 H Anion Gap 15 H Blood Urea Nitrogen 40 H Creatinine 0.83 Est Glomerular Filtrat Rate mL/min Glucose Level 127 Calcium Level 9.5 Phosphorus Level 4.2 Magnesium Level 2.3 White Blood Count 6.9 Red Blood Count 5.28 Hemoglobin 13.1 Hematocrit 42.8 Mean Corpuscular Volume 81.1 L Mean Corpuscular Hemoglobin 24.8 L Mean Corpuscular Hemoglobin Concent 30.6 L Red Cell Distribution Width 15.6 H Platelet Count 309 Mean Platelet Volume 10.5 H Immature Granulocytes % 0.400 Neutrophils % 60.3 Lymphocytes % 21.8 Monocytes % 14.2 H Eosinophils % 2.9 Basophils % 0.4 Nucleated Red Blood Cells % 0.0 Immature Granulocytes # 0.030 Neutrophils # 4.2 Lymphocytes # 1.5 Monocytes # 1.0 H Eosinophils # 0.2 Basophils # 0.0 Nucleated Red Blood Cells # 0.0 Medications Medication Current Medications Fentanyl (Sublimaze) 25 mcg Q2H PRN IV AGITATION Last administered on 05/16/18 20:46; Admin Dose 25 MCG; Start 05/16/18 at 20:30 Ondansetron HCl (Zofran Inj) 4 mg Q6H PRN IV NAUSEA AND/OR VOMITING Last administered on 05/17/18 11:41; Admin Dose 4 MG; Start 05/16/18 at 22:30 Albuterol (Ventolin Hfa) 4 puff Q2H RESP THERAPY PRN INH SHORTNESS OF BREATH; Start 05/16/18 at 22:30 Ipratropium [place] (Atrovent Hfa) 4 puff Q2H RESP THERAPY PRN INH SHORTNESS OF BREATH; Start 05/16/18 at 22:30 Acetaminophen (Tylenol Liquid) 650 mg Q6H PRN PO PAIN LEVEL 1-3 OR FEVER; Start 05/16/18 at 22:30 Famotidine (Pepcid Iv) 20 mg Q12 IV Last administered on 05/22/18 09:02; Admin Dose 20 MG; Start 05/17/18 at 09:00 Heparin Sodium (Porcine) (Heparin (5000 Units/1ml)) 5,000 unit Q12 SC Last administered on 05/22/18 09:03; Admin Dose 5,000 UNIT; Start 05/17/18 at 09:00 Furosemide (Lasix) 40 mg BID DIURETICS IV Last administered on 05/22/18 05:50; Admin Dose 40 MG; Start 05/18/18 at 18:00 Albuterol/ Ipratropium (Duoneb) 3 ml Q6H RESP THERAPY HHN Last administered on 05/22/18 08:16; Admin Dose 3 ML; Start 05/18/18 at 14:00 Haloperidol (Haldol) 1 mg Q6H PRN IV agitation; Start 05/21/18 at 09:30 YAMILET OLSON NP May 22, 2018 13:15
== END 2018-05-22 13:13 | disposition home or self-care (01) | DRG 208 ==
LOC: E/R 18:28 → ICU 21:35 → PP2 05-20 12:08
PROVIDERS: ADMIT Internal Medicine; ATTEND Internal Medicine
PROC: 0BH17EZ Insertion of Endotracheal Airway into Trachea, Via Natural or Artificial Opening (ICD-10-PCS; principal; 2018-05-16)
PROC: 5A1945Z Respiratory Ventilation, 24-96 Consecutive Hours (ICD-10-PCS; 2018-05-16)
DX: J96.01 Acute respiratory failure with hypoxia (principal); I50.33 Acute on chronic diastolic (congestive) heart failure; J18.9 Pneumonia, unspecified organism; R57.9 Shock, unspecified; E87.2 Acidosis; J44.1 Chronic obstructive pulmonary disease with (acute) exacerbation; E86.0 Dehydration
CPT/HCPCS: 31500; 36600; 71045; 80048; 80053; 82803; 83605; 83615; 83735; 83880; 84100; 84484; 85025; 87040; 87081; 87400; 92526; 92610; 93005; 93306; 94002; 94003; 94640; 94644; 94645; 94660; 94664; 94770; 96374; 96375; 97116; 97161; 97530; J0456; J0692; J0696; J1630; J1644; J1940; J2060; J2250; J2405; J2930; J3010; J3370; J3475; J3480; J7030; J7040; P9047